=== PATIENT | female | born 1950 | race Caucasian/White ===

== ENCOUNTER 2018-08-14 10:15 | Outpatient (CLI) | payer BC, SELFPAY ==
[2018-08-14 12:45] LABS: ALT 22 U/L (12-78); AST 13 U/L (15-37); Albumin 3.9 g/dL (3.4-5.0); Alkaline Phosphatase 82 U/L (46-116); Anion Gap 9.5 mmol/L (3-11); BUN 12 mg/dL (7-18); Bilirubin, Total 0.4 mg/dL (0.2-1.0); CO2 30.5 mmol/L (21.0-32.0); CREATININE 0.66 mg/dL (0.55-1.02); Calcium 9.8 mg/dL (8.5-10.1); Chloride 102 mmol/L (98-107); Cholesterol 171 mg/dL (50-200); Glucose 84 mg/dL (70-100); HDL Cholesterol 49 mg/dL (40-60); LDL CHOLESTEROL 107 mg/dL (<100); Potassium 3.7 mmol/L (3.5-5.1); Sodium 142 mmol/L (136-145); Total Protein 7.1 g/dL (6.4-8.2); Triglyceride 113 mg/dL (30-150)
== END 2018-08-14 10:35 ==
DX: F17.200 Nicotine dependence, unspecified, uncomplicated (principal); E78.5 Hyperlipidemia, unspecified; I10 Essential (primary) hypertension; R63.8 Other symptoms and signs concerning food and fluid intake
CPT/HCPCS: 36415; 80053; 80061; 83721

== ENCOUNTER 2018-08-20 01:42 | Outpatient (CLI) | payer BC, SELFPAY ==
--- NOTE | 2018-08-20 15:56 | DI.MAMMO_ITS ---
SYMPTOMS/DIAGNOSIS: SCREENING, Z12.31 MAMMOGRAM: Mammograms were interpreted according to the usual protocol including computer analysis with CAD system, tomosynthesis and C view imaging. Comparison is made with exams from 2013 through 2018. The breasts are composed of fatty density tissue, breast density Category A. No suspicious masses or suspicious microcalcifications are seen. There has been no significant change. IMPRESSION: Category I, negative mammogram. Yearly screening mammography is recommended. [facility] [place] ASSESSMENT OF FINDINGS: Negative. Category 1. Patient will receive a letter notifying them of these results. BI-RAD category A. The breasts are almost entirely fatty.
== END 2018-08-20 02:02 ==
DX: Z12.31 Encounter for screening mammogram for malignant neoplasm of breast (principal)
CPT/HCPCS: 77063; 77067

== ENCOUNTER 2019-10-20 01:06 | Outpatient (CLI) | payer BC, SELFPAY ==
--- NOTE | 2019-10-20 15:47 | DI.MAMMO_ITS ---
EXAM: MAMMO SCREENING CLINICAL HISTORY: screening,Z12.39 TECHNIQUE: Mammograms were interpreted according to the usual protocol including computer analysis w ith CAD system, tomosynthesis and C-view imaging. COMPARISON: 2009 through 2018 FINDINGS: The breasts are composed of scattered fibroglandular densities, Breast Density category B. No suspicious masses or suspicious microcalcifications are seen. No skin thickening or abnormal axillary lymph nodes are seen. There has been no significant change from prior exams. IMPRESSION: BI-RADS category 1, yearly screening mammography is recommended. Breast density category B, scattered fibroglandular densities.
== END 2019-10-20 01:26 ==
DX: Z12.31 Encounter for screening mammogram for malignant neoplasm of breast (principal)
CPT/HCPCS: 77063; 77067

== ENCOUNTER 2020-08-12 01:54 | Outpatient (CLI) | payer BC, SELFPAY ==
[2020-08-12 12:36] LABS: ALT 19 U/L (14-59); AST 12 U/L (15-37); Albumin 3.9 g/dL (3.4-5.0); Alkaline Phosphatase 81 U/L (46-116); Anion Gap 8.5 mmol/L (3-11); BUN 13 mg/dL (7-18); Bilirubin, Total 0.3 mg/dL (0.2-1.0); CO2 29.5 mmol/L (21.0-32.0); CREATININE 0.9 mg/dL (0.55-1.02); Calcium 9.5 mg/dL (8.5-10.1); Calculated LDL 120 mg/dL (<100); Chloride 102 mmol/L (98-107); Cholesterol 182 mg/dL (<200); Glucose 109 mg/dL (74-106); HDL Cholesterol 51 mg/dL (40-60); Potassium 3.8 mmol/L (3.5-5.1); Sodium 140 mmol/L (136-145); Total Protein 7.3 g/dL (6.4-8.2); Triglyceride 59 mg/dL (<150)
== END 2020-08-12 01:55 | disposition home or self-care (01) ==
LOC: LOS 01:54
DX: Z00.00 Encounter for general adult medical examination without abnormal findings (principal); I10 Essential (primary) hypertension; E78.5 Hyperlipidemia, unspecified
CPT/HCPCS: 36415; 80053; 80061

== ENCOUNTER 2020-10-20 01:13 | Outpatient (CLI) | payer BC, SELFPAY ==
--- NOTE | 2020-10-20 09:15 | DI.MAMMO_ITS ---
Exam(s) MAMMO SCREENING EXAM: MAMMO SCREENING CLINICAL HISTORY: screening,Z12.39. TECHNIQUE: Bilateral full field digital CC and MLO mammographic images were obtained with 3D tomosyn thesis and utilizing computer aided detection (CAD). COMPARISON: Prior mammograms dating back to 2010, the most recent being September 2019. FINDINGS: There has been no significant change in the appearance and distribution of the fibroglandular tissue. Asymmetric density in the medial aspect of the right breast located 9 cm in from the nipple is unchan ged from prior studies. There are no new spiculated masses nor malignant appearing microcalcification groups. There is no significant architectural distortion nor skin thickening-retraction. IMPRESSION: No radiographic evidence of malignancy. BI-RADS Category 1 - Negative Breast Density - Category B - Scattered areas of fibroglandular density Breast density Category C or D implies that the patient has dense breast tissue. Dense breast tissue can make it harder to find cancer on a mammogram. Dense breast tissue is also associated with an incr eased risk of breast cancer. This information about the result of the mammogram report was provided to the patient to raise their awareness. Use this report when you speak with the patient about their risks for breast cancer, which includes their family history. At that time, you may recommend additional screening tests (Ultrasoun d or MRI) as these tests may add significant information. A negative radiographic report should not delay biopsy if a dominant or clinically suspicious mass is present. Up to ten percent of cancers are not identified on mammography. A negative report may reinforce clinical impression. Adenosis and dense breasts may obscure an underlying neoplasm. False positive reports average 6 to 10%. Patient will receive a letter notifying them of these results.
== END 2020-10-20 01:33 ==
DX: Z12.31 Encounter for screening mammogram for malignant neoplasm of breast (principal)
CPT/HCPCS: 77063; 77067

== ENCOUNTER 2021-02-08 02:20 | Outpatient (CLI) | payer BC, SELFPAY ==
[2021-02-08 12:14] LABS: Source Nasal/Nares
[2021-02-08 14:28] LABS: COVID-19 PCR Negative (Negative)
== END 2021-02-08 02:21 | disposition home or self-care (01) ==
LOC: LBO 02:20
PROVIDERS: Visit Provider Surgery
DX: Z20.822 Contact with and (suspected) exposure to COVID-19 (principal)
CPT/HCPCS: 87635

== ENCOUNTER 2021-02-10 12:51 | Day surgery (SDC) | payer BC, SELFPAY ==
--- NOTE | 2021-02-09 14:47 | COLE_ITS ---
Colonoscopy Report Date of procedure: 02/10/21 Pre-op diagnosis general: CRC screen/constipation Post-op diagnosis procedure note: other (sm. polyp) Surgeon: Nalini Segura Anesthesia Type: General:No Airway Estimated blood loss (mL): 0 Pathology: other Complications: None Disposition: same day Prep: Miralax/Dulcolax Retraction Time: 9 mins Procedure Description: After informed consent was obtained the patient was taken to the procedure room and placed in a left decubitous position. Monitors were applied and a time out was done. The patients name, date of , procedure, allergies to medications and metal in their body was reviewed. The patient was then sedated. Once sedated and comfortable a rectal exam was done. External exam was normal- hemorrdoidal tags Internal exam revealed a normal sphincter tone and no palpable masses. The scope was then introduced and retrofelexed. no internal hemorrhoid/hemorrhoidal tags. The scope was then advanced to the cecum w/out difficulty. The TI and appendiceal orifice were identified. The prep was poor- due to the delay in endo today. The colon jose were lavaged w/ 1.5L of saline. The scope was then slowly retracted over 9 minutes back into the rectum. There was a small polyp at 20cm. This is probably hyperplastic- it was a flat, 5mm polyp. It is removed with a cold biting forcep. All specimens are retrieved and no bleeding is noted. There is no diverticular disease. The scope was removed and the patient was woken up and taken back to Same day surgery in stable condition. The patient tolerated the procedure well and there were no immediate complications. Follow up: The patient should follow up in 5-7 years, path pd, unless they develop changes in bowel habits or other new gastrointestinal complaints. If the path report shows a hyperplastic polyp, then I would not recommend any f urther colonoscopies.
--- NOTE | 2021-02-09 14:48 | PDOC.DSDIS_ITS ---
Discharge Plan Disposition Patient Disposition: HOME Condition: Good Discharge Details Reason For Visit: colon scope Attending Provider: Nalini Segura Primary Care Provider: Kailyn Talbert Home Meds and New Rx's Prescriptions: No Action pravastatin 20 mg tablet 20 mg PO DAILY Qty: 90 RF: 4 triamcinolone acetonide 0.025 % cream 1 applic Topical BID Qty: 80 RF: 0 lisinopril-hydrochlorothiazide 20-25 mg tablet 1 tab PO DAILY Qty: 90 RF: 4 Shingrix (PF) 50 mcg/0.5 mL suspension for reconstitution 0.5 ml IM ONCE Qty: 1 RF: 0 multivitamin 1 EACH tablet 1 ea PO DAILY RF: 0 aspirin [Aspir-81] 81 MG tablet,delayed release (DR/EC) 81 mg PO DAILY RF: 0 GLUCOSAMINE \T\ CHONDROITIN CAP 1 EACH capsule 2 ea PO DAILY RF: 0 Discharge Instructions Additional Instructions: DSU Colonoscopy Post- Op Instructions Instructions for Everyone who is given Anesthesia: For your safety, please do the following for the next twenty-four (24) hours: *Do Not operate a motor vehicle (car, truck, motorcycle, etc.) *Do Not drink alcoholic beverages or use any recreational drugs for the first 24 hours or while taking pain medications. The medications in your body may have a reaction that can be dangerous. *Do Not make any important decisions or sign any important papers. Findings: Very small polyp otherwise normal Follow up: My office will send a letter in 2 to 3 weeks time detailing as to what type of polyp it was. Depending on findings will determine when we want to repeat your colonoscopy, if at all. 1. No lifting over 20 pounds or strenuous activity for the first 24 hours after your procedure. After 24 hours there are no restrictions on your activity but you may feel fatigued for a few days. 2. After you arrive home you may have a light meal and return to your normal diet as you can tolerate it without feeling sick to your stomach. 3. You may have a bloated, gaseous feeling in your belly (abdomen) after a colonoscopy. Passing gas and belching will help. Walking or lying down on your left side with your knees flexed may relieve the discomfort. Call the office at [phone] (Office) or [phone] (Hospital) right away if you notice any of the following: a.Vomiting of blood or ?coffee ground stools?. b.Rectal bleeding 1Tbsp, blood clots or continuous bleeding. c.Severe belly (abdominal) pain. d.A hard distended belly (abdomen) and an inability to pass gas. 4. Please don?t expect to have a normal BM (bowel movement) for 2-3 days after your procedure. 5. If there are questions regarding the findings of your procedure, please contact your doctor 6. If you are unable to contact your doctor with a problem, contact the hospital at [phone]. 7. Continue all your regular medications unless directed otherwise. I understand the above instructions and have no questions. Signature of Patient or Adult Escort Name of Responsible Adult Escort Signature of Nurse Date/Time Activity:: see above Diet:: see above Discharge Orders Discharge Orders: Discharge Order (Routine); Ordered 02/09/21 Ordered By: Nalini Segura DS: Diagnosis Discharge Diagnosis (1) Colon polyp: Status: Acute
--- NOTE | 2021-02-10 10:01 | ANES.PREOP_ITS ---
General Info Date of Service Date Performed: 02/10/21 Height: 5 ft 2.5 in Weight: 82.871 kg Body Mass Index (BMI): 32.8 Surgical Procedure: Operation Date: 02/10/21 12:05 Proposed Procedures Side Surgeon kera Segura DO Meds Allergies and Home Medications Allergies Allergy/AdvReac Type Severity Reaction Status Date / Time hexachlorophene Allergy Intermediate RASH Verified 02/08/21 14:01 [Hexachlorophene] Home Medication Medication Instructions Recorded Glucosamine \T\ Chondroitin Cap 2 ea PO DAILY 03/25/13 aspirin [Aspir 81] 81 mg PO DAILY tab-cap 03/25/13 multivitamin 1 ea PO DAILY 03/25/13 lisinopril 20 1 tab PO DAILY #90 tab-cap 08/22/20 mg-hydrochlorothiazide 25 mg tablet pravastatin 20 mg tablet 20 mg PO DAILY #90 tab-cap 08/22/20 triamcinolone acetonide 0.025 % 1 applic TOPICAL BID #80 g 08/22/20 topical cream varicella-zoster glycoE [id number] 0.5 ml IM ONCE #1 ea 08/22/20 adj(PF) 50 mcg/0.5 mL IM susp, kit Current Visit Medications: Current Medications Generic Name Dose Route Start Last Admin Trade Name Freq PRN Reason Stop Dose Admin Hyoscyamine Sulfate 0.125 mg 02/09/21 14:49 Hyoscyamine 0.125 Mg Sl/Oral/Chew SL DIRECTED PRN Ringer's Solution 1,000 mls @ 80 mls/hr 02/10/21 06:00 IV 03/11/21 23:59 INFUSION [facility] IV Miscellaneous Supplies 1 each 02/10/21 06:00 Iv Access IV 03/11/21 23:59 DIRECTED EILEEN Ondansetron HCl 4 mg 02/09/21 14:49 Ondansetron 4 Mg/2 Ml Vial IVP Q4H PRN PRN Nausea / Vomiting Sodium Chloride 0 ml 02/10/21 06:00 Normal Saline Flush 10 Ml Syr IV 03/11/21 23:59 PRN PRN Sodium Chloride 0 ml 02/10/21 06:00 Normal Saline 10 Ml Vial IJ 03/11/21 23:59 DIRECTED PRN Sterile Water 0 ml 02/10/21 06:00 Water,Injection,Sterile 10 Ml Vial IJ 03/11/21 23:59 DIRECTED PRN PFSH Active Problems Active Problems: Problem Status Onset Code Elevated glucose level R73.09 Colon cancer screening Z12.11 Constipation K59.00 Essential hypertension 03/24/13 I10 Hyperlipidemia 04/09/12 E78.5 Increased BMI R63.8 Tobacco use disorder F17.200 Medical History Medical History (Updated 02/10/21 @ 14:26 by Nalini Segura DO) Colon cancer screening Constipation Essential hypertension (03/24/13) Hyperlipidemia (04/09/12) 10 year risk 17.7% Increased BMI Tobacco use disorder Surgical History Surgical History (Updated 02/10/21 @ 13:01 by Cameron Thornton) Dilation and curettage DUB S/P appendectomy S/P cholecystectomy Tobacco Smoking/Tobacco Use Status: Current-Occasional Tobacco Type: cigarettes Smoking cigarettes per day: 3 Quit Status: has quit before Second hand exposure: No Alcohol Alcohol Intake: never Substance Use Substance use: Never Substance use type: does not use Vital Signs and Lab Results Vital Signs Most Recent Vital Signs in EMR: Temp Pulse Resp BP Pulse Ox 36.6 C 89 16 144/78 H 99 02/10/21 13:07 02/10/21 13:07 02/10/21 13:07 02/10/21 13:07 02/10/21 13:07 Lab Results Blood Type / Crossmatch: No Data to Display Complete Blood Count: No Data to Display Complete Metabolic Panel: No Data to Display Liver Function Panel: No Data to Display Coagulation Panel: No Data to Display Cardiac Panel: No Data to Display Arterial Blood Gas: No Data to Display Venous Blood Gas: No Data to Display Pancreas Panel: No Data to Display Thyroid Panel: No Data to Display Infectious Disease: Coronavirus (COVID-19)(PCR) Negative (Negative) 02/08/21 08:38 02/08/21 Coronavirus 2019 Source Nasal/Nares 02/08/21 08:38 02/08/21 Blood Cultures: No Data to Display Toxicology Panel: No Data to Display Anesthesia Assessment and Plan Anesthesia History Personal History: No History of Anesthesia Complications Family History: No Family History of Anesthesia Complications Exercise Tolerance Exercise Tolerance: Metabolic Equivalents>4 Cardiac & Pulmonary Exam Cardiac Exam: Normal S1/S2 Heart Sounds Pulmonary Exam: Clear Bilateral Breath Sounds Airway Exam Known Difficult Airway: No Mallampati Class: 2 Mouth Opening: Normal (> 3cm) Thyromental Distance: Greater than 3 cm Neck Range of Motion: Full ROM Neck Circumference: Normal Teeth Condition: Normal Dentition ASA Classification ASA Score: ASA 2 Emergency Case?: No NPO Status NPO Status: NPO Clears >2 hours, Solids >8 hours Anesthesia Plan Resuscitation Status: Full Code Anesthesia Technique: General Anesthesia Airway Planned: Natural Airway Monitors Used: Standard Monitors Preoperative Comments:: 70 yo female for screening colonoscopy. PMHx: HTN, smoker.
[2021-02-10 13:07] VITALS: BP 144/78; PULSE 89; RESP 16; TEMP 36.6; O2SAT 99
[2021-02-10 13:26] VITALS: BMI 32.8
[2021-02-10] MEDS: Lactated Ringers 1,000 ML 80 ML IV (13:31)
--- NOTE | 2021-02-10 14:18 | BOWEL_PTH ---
PATIENT: Sarah Bloom LOC: [facility] U#:[id number] AGE/SX: 70/F ROOM: RE02/10/[address]: Nalini Segura : 1950 BED: DIS: 02/10/2021 SPEC #: [id number] RECD: 02/10/21 15:33 STATUS: NANCY REQ #: [id number] CARLA: 02/10/21 14:[address]: Nalini Segura DEPT: Surgical Specimen RECD BY: Isis Jose ENTERED: 02/10/21 15:33 SP TYPE: Bowel OTHR DR: Kailyn Talbert APRN Tissues: 1 - BIOPSY BOWEL Procedures: GROSS AND MICRO LEVEL 4 Comments: [id number]
[2021-02-10 14:28] VITALS: BP 129/95; PULSE 64; RESP 16; TEMP 36.1; O2SAT 99
[2021-02-10 14:58] VITALS: BP 141/68; PULSE 52; RESP 16; TEMP 36.2; O2SAT 100
--- NOTE | 2021-02-10 15:03 | W.ANESPOSTOP ---
Postoperative Evaluation Date, Time and Location Date Performed: 02/10/21 Time Performed: 15:03 Patient Location: Day Surgery Unit Vital Signs Most Recent Imported Vital Signs: Most Recent Vital Signs Temp Pulse Resp BP Pulse Ox 36.1 C L 64 16 129/95 H 99 02/10/21 14:28 02/10/21 14:28 02/10/21 14:28 02/10/21 14:28 02/10/21 14:28 Pain Score Most Recent Pain Score: Most Recent Pain Score Pain Level 0 02/10/21 14:28 Assessment Mental Status: Awake (Alert & Oriented to Patient Baseline) Airway and Respiratory Function: Patent airway with normal (patient baseline) respiratory exam Cardiovascular Function: Hemodynamically Stable Hydration Status: Adequately Hydrated Nausea & Vomiting: No Nausea or Vomiting Pain: Pt. Denies Any Pain Peripheral Nerve Block: Patient did not receive a nerve block
== END 2021-02-10 15:35 | disposition home or self-care (01) ==
PROVIDERS: Visit Provider Surgery
PROC: 0DJD8ZZ Inspection of Lower Intestinal Tract, Via Natural or Artificial Opening Endoscopic (ICD-10-PCS; CPT 45378; principal; 2021-02-10 12:00)
DX: Z12.11 Encounter for screening for malignant neoplasm of colon (principal); D12.5 Benign neoplasm of sigmoid colon; K59.00 Constipation, unspecified
CPT/HCPCS: 45380; 88305; J2001

== ENCOUNTER 2021-11-06 04:27 | Outpatient (CLI) | payer BC, SELFPAY ==
[2021-11-06 13:16] LABS: Hemoglobin A1C 5.7 % (<5.7)
[2021-11-06 13:27] LABS: ALT 23 U/L (14-59); AST 16 U/L (15-37); Albumin 3.7 g/dL (3.4-5.0); Alkaline Phosphatase 69 U/L (46-116); BUN 14 mg/dL (7-18); Bilirubin, Total 0.6 mg/dL (0.2-1.0); CO2 28.1 mmol/L (21.0-32.0); CREATININE 0.8 mg/dL (0.55-1.02); Calcium 9.6 mg/dL (8.5-10.1); Glucose 94 mg/dL (74-106); Total Protein 7.1 g/dL (6.4-8.2)
[2021-11-06 13:32] LABS: Anion Gap 8.9 mmol/L (3-11); Chloride 100 mmol/L (98-107); Sodium 137 mmol/L (136-145)
[2021-11-06 13:38] LABS: Potassium 2.9 mmol/L (3.5-5.1)
[2021-11-06 15:22] LABS: Calculated LDL 100 mg/dL (<100); Cholesterol 167 mg/dL (<200); HDL Cholesterol 50 mg/dL (40-60); Triglyceride 86 mg/dL (<150)
== END 2021-11-06 04:28 | disposition home or self-care (01) ==
LOC: LOS 04:27
DX: I10 Essential (primary) hypertension (principal); E78.5 Hyperlipidemia, unspecified; R73.09 Other abnormal glucose
CPT/HCPCS: 36415; 80053; 80061; 83036

== ENCOUNTER 2021-12-14 01:09 | Outpatient (CLI) | payer OTHER, SELFPAY ==
--- OUTSIDE RECORDS SUMMARY | 2021-12-14 01:12 | XMS_ITS | Clinical Summary ---
:1950 Author Organization [facility] [place] [place] [address] Care Team Providers Name Role Phone Flores Vega Primary Care Provider Allergies No known active allergies Medications Medication Sig Dispensed Refills Start Date End Date Status CIS Free Text Med - 0 08/13/2005 Active Multiple Vitamin CIS Free Text Med - 0 08/13/2005 Active Baby ASA (aspirin) GLUCOSAMINE HCL/CHONDRO 0 08/13/2005 Active TAFOYA A (GLUCOSAMINE-CHONDROITI N ORAL) lisinopril-hydrochlorot 1 Tablet(s), PO, 0 6 Active hiazide (PRINZIDE) Once daily 20-12.5 mg per tablet Immunizations Name Administration Dates Next Due Hepatitis A Vaccine, unspecified formulation 06/14/2005 Influenza Vaccine, Whole 06/14/2005 Td, adult 06/14/2005 Social History Tobacco Use Types Packs/Day Years Used Date Never Assessed Sex Assigned at Date Recorded Not on file Plan of Treatment Health Maintenance Due Date Last Done Comments Covid-19 Vaccine (#1) 1956 Hepatitis C Screening 1969 Tdap adult 1970 Breast Cancer Share Decision Needed 1991 Colonoscopy 1996 Breast Cancer screening 2001 Zoster vaccine (1 of 2) 2001 Advance Directive 2006 Tetanus vaccine 06/14/2015 06/14/2005 Bone Density Scan 2016 Pneumoccocal Vaccine: 65+ (1 - PCV) 2016 Influenza (Flu) vaccine (1 of 1 - Influenza standard 01/25/2022 06/14/2005 series) Care Teams Assistant Broker Relationship Specialty Start Date End Date Flores Vega PA PCP - General 06/06/12
--- OUTSIDE RECORDS SUMMARY | 2021-12-14 01:12 | XMS_ITS | Encounter Summary ---
:1950 Author Organization [facility] Address [facility] [place] [address] Care Team Providers Name Role Phone Jay Agustin MD, Hiram Primary Care Provider Encounter Details Date Type Department Care Team Description 05/28/2012 Orders Only Radiology Ani Shields MD Abnormal findings on [facility] clarita gnostic imaging of Drive DR breast (Primary Dx) [place] [address] NUCLEAR MEDICINE [phone] [place] [address] Social History Tobacco Use Types Packs/Day Years Used Date Never Assessed Sex Assigned at Date Recorded Not on file documented as of this encounter Plan of Treatment Not on filedocumented as of this encounter Visit Diagnoses Diagnosis Abnormal findings on diagnostic imaging of breast - Primary Other (abnormal) findings on radiologica l examination of breast documented in this encounter Care Teams Lining Closer Relationship Specialty Start Date End Date Hiram Thompson MD PCP - General 04/18/10 06/05/[address] [place] [address] documented as of this encounter
--- OUTSIDE RECORDS SUMMARY | 2021-12-14 01:12 | XMS_ITS | Encounter Summary ---
:1950 Author Organization [facility] [place] [address] Care Team Providers Name Role Phone Flores Vega Primary Care Provider Encounter Details Date Type Department Care Team Description 06/11/2012 Hospital Encounter Mammography at [facility] [place] ANGI, DR YAN Abnormal findings on [facility] Mark Anthony Sullivan MD [address] [place] [address] [place] [address] Social History Tobacco Use Types Packs/Day Years Used Date Never Assessed Sex Assigned at Date Recorded Not on file documented as of this encounter Medications at Time of Discharge Medication Sig Dispensed Refills Start Date End Date CIS Free Text Med - 0 08/13/2005 Multiple Vitamin CIS Free Text Med - Baby 0 08/13/2005 ASA (aspirin) GLUCOSAMINE HCL/CHONDRO TAFOYA 0 6 A (GLUCOSAMINE-CHONDROITIN ORAL) lisinopril-hydrochlorothiaz 1 Tablet(s), PO, 0 pasquale (PRINZIDE) 20-12.5 mg Once daily per tablet documented as of this encounter Progress Notes Gene Shields MD - 06/10/2012 2:38 PM EST Patient Name: Sarah Bloom Patient Age: 62 y.o. Birthdate: 1950 Admit date: (Not on file) Attending Physician: Dr Farrah Malik MD Procedure date: scheduled for tomorrow Procedure type: left Breast biopsy, stereo or ultrasound Special Instructions: none Allergies: Review of patient's allergies indicates no known allergies. Medications: Current outpatient prescriptions:CIS Free Text Med - Multiple Vitamin, , Disp: , Rfl: ;CIS Free Text Med - Baby ASA (aspirin), , Disp: , Rfl: ; GLUCOSAMINE HCL/CHONDRO TAFOYA A (GLUCOSAMINE-CHONDROITIN ORAL), , Disp: , Rfl: ; lisinopril-hydrochlorothiazide (PRINZIDE) 20-12.5 mg per tablet, 1Tablet(s), PO, Once daily, Disp: , Rfl: Anticoagulation status: ASA stopped 05/30 Imaging reviewed and procedural plan approved by Dr. GENE SHIELDS MD documented in this encounter Plan of Treatment Not on filedocumented as of this encounter Procedures Procedure Name Priority Date/Time Associated Diagnosis Comme nts MAMMO BREAST US Routine 06/11/2012 10:58 Other (abnormal) Resu lts for this LIMITED AM EST findings on procedure are i n radiological the results examination of breast sectio n. documented in this encounter Results Mammo breast US unilateral bilateral (06/11/2012 10:58 AM EST) Anatomical Region Laterality Modality Breast N/A Mammography Specimen (Source) Anatomical Collection Method Collection Time Re ceived Time Location / / Volume Laterality 06/11/2012 10:58 AM EST Impressions 06/12/2012 3:28 PM EST IMPRESSION: ?? The Left breast is BENIGN for an 8mm sim ple cyst with mural calcifications (BIRADS Category 2). Repeat bilateral ma mmography in one year recommended. Narrative 06/12/2012 3:28 PM EST LIMITED ULTRASOUND OF THE LEFT BREAST ON 06/11/12: ?? CLINICAL INDICATION: Please see dictatio n of outside study. ? FINDINGS: We repeated the ultrasound of the inferior aspect of the Left breast and identified the mass seen on her rece nt mammogram that was referred for biopsy. She has an 8mm lobulated cyst co ntaining a mural calcification highly concordant with the abnormality seen on mammography. This is BIRADS Category 2 and requires no further intervention. Th e patient was reassured about the benign nature of this abnormality. ?? Procedure Note Gene Shields MD - 06/12/2012Formattin g of this note might be different from the original. LIMITED ULTRASOUND OF THE LEFT BREAST ON 06/11/12: CLINICAL INDICATION: Please see dictatio n of outside study. FINDINGS: We repeated the ultrasound of the inferior aspect of the Left breast and identified the mass seen on her rece nt mammogram that was referred for biopsy. She has an 8mm lobulated cyst co ntaining a mural calcification highly concordant with the abnormality seen on mammography. This is BIRADS Category 2 and requires no further intervention. Th e patient was reassured about the benign nature of this abnormality. IMPRESSION IMPRESSION: The Left breast is BENIGN for an 8mm sim ple cyst with mural calcifications (BIRADS Category 2). Repeat bilateral ma mmography in one year recommended. Gene Shields MD IMG MAMMO ORDERABLES documented in this encounter Visit Diagnoses Diagnosis Abnormal findings on diagnostic imaging of breast Other (abnormal) findings on radiologica l examination of breast documented in this encounter Care Teams Industrial Maintenance Electrician Relationship Specialty Start Date End Date Flores Vega PA PCP - General 06/06/12 documented as of this encounter
--- OUTSIDE RECORDS SUMMARY | 2021-12-14 01:13 | XMS_ITS | Encounter Summary ---
:1950 Author Organization [facility] [place] [address] Care Team Providers Name Role Phone Jay Agustin MD, Hiram Primary Care Provider Encounter Details Date Type Department Care Team Description 05/23/2012 External Results XRay at [facility] Flores Vega PA [address] [place] [address] [address] [place] [address] [place] [address] [phone] (Wo rk) Social History Tobacco Use Types Packs/Day Years Used Date Never Assessed Sex Assigned at Date Recorded Not on file documented as of this encounter Plan of Treatment Not on filedocumented as of this encounter Procedures Procedure Name Priority Date/Time Associated Diagnosis Comme nts MAMMOGRAM SCAN Routine 05/16/2012 MAMMOGRAM SCAN Routine 05/12/2012 MAMMOGRAM SCAN Routine 04/20/2011 MAMMOGRAM SCAN Routine 04/19/2010 documented in this encounter Results Scan Doc: Mammogram (05/16/2012) Anatomical Region Laterality Modality Other Narrative This result has an attachment that is no t available. Flores URIAS MEDIA MGR SCAN EXT ORDR/RSLT Scan Doc: Mammogram (05/12/2012) Anatomical Region Laterality Modality Other Narrative This result has an attachment that is no t available. Flores URIAS MEDIA MGR SCAN EXT ORDR/RSLT Scan Doc: Mammogram (04/20/2011) Anatomical Region Laterality Modality Other Narrative This result has an attachment that is no t available. Flores URIAS MEDIA MGR SCAN EXT ORDR/RSLT Scan Doc: Mammogram (04/19/2010) Anatomical Region Laterality Modality Other Narrative This result has an attachment that is no t available. Flores URIAS MEDIA MGR SCAN EXT ORDR/RSLT documented in this encounter Visit Diagnoses Not on filedocumented in this encounter Care Teams [employer] Operations Specialist Relationship Specialty Start Date End Date Hiram Thompson MD PCP - General 04/18/10 06/05/12 [address] [place] [address] documented as of this encounter
--- OUTSIDE RECORDS SUMMARY | 2021-12-14 01:13 | XMS_ITS | Encounter Summary ---
:1950 Author Organization [facility] Address [address] [place] [address] Care Team Providers Name Role Phone Unavailable Primary Care Provider Unavailable Encounter Details Date Type Department Care Team Description 01/14/2007 Results Only [facility] - Kim Anthony PA conversion [address] [place] [address] Social History Tobacco Use Types Packs/Day Years Used Date Never Assessed Sex Assigned at Date Recorded Not on file documented as of this encounter Plan of Treatment Not on filedocumented as of this encounter Procedures Procedure Name Priority Date/Time Associated Diagnosis Comme nts CYTOPATHOLOGY Routine 01/14/2007 0:00 EDT Results for this procedure are i n the results section . documented in this encounter Results CYTOPATHOLOGY (01/14/2007 0:00 EDT) Pathology Report: CYTOPATHOLOGY REPORT [facility] Reports generated via electronic interface contain nilam ginal data; however they are lacking the format of the original re port. Caution should be taken when reading/interpreting unfo rmatted reports. Name: ? SARAH WATTS ? Accession #: ? [id number] : ? 1950 (Age: 56) ??F ?Collect Date: ? 12/26 Location: ? [facility] ? Receive Date : ? 01/15/2007 Provider: ?KIM URIAS Copy to: ? Specimen/Source: ?ThinPrep Pap Test, E ndocervix, processed on [employer] ThinPrep Imaging System, with manual evaluation Last Menstrual Period: ? Other: ? HPVA - HPV testing requested if ASC-US on the current ThinPrep Pap test. ? SPECIMEN ADEQUACY ? Satisfactory for Evaluation - transformation zone component present GENERAL CATEGORIZATION ? Negative for Intraepithelial Lesion or Malignan cy ? Document reviewed and electronically signed by: ? BARRON Banerjee(ASCP) ? Report Date: ??01/21/2007 09:29 End of Report Specimen Performing Organization Address City/State/ZIP Code Phon e Number [facility] [address] [place] [address] SERVICES [facility] [address] [place] [address] documented in this encounter Visit Diagnoses Not on filedocumented in this encounter
--- OUTSIDE RECORDS SUMMARY | 2021-12-14 01:13 | XMS_ITS | Encounter Summary ---
:1950 Author Organization [facility] [place] [address] Care Team Providers Name Role Phone Jay Agustin MD, Hiram Primary Care Provider Encounter Details Date Type Department Care Team Description 05/26/2012 Hospital Encounter [place]Ray at [facility] [place] YAN [address] [place] [address] [place] [address] Social History Tobacco Use Types Packs/Day Years [...] per tablet documented as of this encounter Plan of Treatment Not on filedocumented as of this encounter Procedures Procedure Name Priority Date/Time Associated Diagnosis Comme nts REQUEST FOR 2ND Routine 05/26/2012 10:15 AM Resul ts for this READ MAMMO EST procedure are i n the results section. documented in this encounter Results Request for 2nd read Mammo (05/26/2012 10:15 AM EST) Anatomical Region Laterality Modality Other Specimen (Source) Anatomical Collection Method Collection Time Re ceived Time Location / / Volume Laterality 05/26/2012 10:15 AM EST Narrative 05/29/2012 4:56 PM EST INTERPRETATION OF OUTSIDE MAMMOGRAMS (PERFORMED ON 05/12/12 AND 05/16/12) FROM [facility] DATED 05/26/12: ?? DIAGNOSTIC IMAGING SUMMARY: ?? LEFT BREAST LESION 1: SUSPICIOUS (BIRADS Category 4). ?? Finding: Lobulated mass with a calcifica tion. ?? Size: 8mm. ?? Location: 0600, 5cm from the nipple. ?? Recommendation: Biopsy by either ultraso und or stereotactic means. ?? RIGHT BREAST: NEGATIVE (BIRADS Category 1). ?? NARRATIVE: ?? CLINICAL INDICATION: I have been asked t o consult on this patient by Dr. Mark Anthony Sullivan because he believes a review of this study may change or alter the care of this patient. ?? TECHNIQUE: Studies are from [facility] and [facility] bilateral screening mammograms from 05/12/12 with comparisons from 2006 through 2010 and additional diagnostic views of the Left breast from 05/16/12 a s well as a limited ultrasound of the Left breast from the same date. ?? FINDINGS: The breasts are of scattered f ibroglandular density. ?? RIGHT BREAST: The Right breast is normal and unchanged from priors. ?? LEFT BREAST: There is a subtle 8mm lobul ated, low density opacity at 0600 in the Left breast approximately 5cm from t he nipple. It is seen best on the cone compression Left CC and Left true latera l projections with an associated single coarse calcification. This represents a subtle change compared to earlier mammograms. This is of low probability f or malignancy but in view of the subtle change a biopsy is reasonable. [facility]trasound performed [facility] did not show an abnormality at this site. I would recommend that we rep eat the ultrasound immediately prior to the biopsy to ascertain a route for biop sy. If it is not visible by ultrasound we will proceed with a stereotactic biop sy. Procedure Note Ani Shields MD - 05/29/2012Formattin g of this note might be different from the original. INTERPRETATION OF OUTSIDE MAMMOGRAMS (PE RFORMED ON 05/12/12 AND 05/16/12) FROM [facility] DATED 05/26/12: DIAGNOSTIC IMAGING SUMMARY: LEFT BREAST LESION 1: SUSPICIOUS (BIRADS Category 4). Finding: Lobulated mass with a calcifica tion. Size: 8mm. Location: 0600, 5cm from the nipple. Recommendation: Biopsy by either ultraso und or stereotactic means. RIGHT BREAST: NEGATIVE (BIRADS Category 1). NARRATIVE: CLINICAL INDICATION: I have been asked t o consult on this patient by Dr. Mark Anthony Sullivan because he believes a review of this study may change or alter the care of this patient. TECHNIQUE: Studies are from [facility] and [facility] bilateral screening mammograms from 05/12/12 with comparisons from 2006 through 2010 and additional diagnostic views of the Left breast from 05/16/12 a s well as a limited ultrasound of the Left breast from the same date. FINDINGS: The breasts are of scattered f ibroglandular density. RIGHT BREAST: The Right breast is normal and unchanged from priors. LEFT BREAST: There is a subtle 8mm lobul ated, low density opacity at 0600 in the Left breast approximately 5cm from t he nipple. It is seen best on the cone compression Left CC and Left true latera l projections with an associated single coarse calcification. This represents a subtle change compared to earlier mammograms. This is of low probability f or malignancy but in view of the subtle change a biopsy is reasonable. [facility]ound [facility] did not show an abnormality at this site. I would recommend that we rep eat the ultrasound immediately prior to the biopsy to ascertain a route for biop sy. If it is not visible by ultrasound we will proceed with a stereotactic biop sy. Mark Anthony Sullivan MD IMG OUTSIDE INTERPRETATION O RDERABLES documented in this encounter Visit Diagnoses Not on filedocumented in this encounter Care Teams Taxicab Dispatcher Relationship Specialty Start Date End Date Hiram Thompson MD PCP - General 04/18/10 06/05/[address] [place] [address] documented as of this encounter
--- OUTSIDE RECORDS SUMMARY | 2021-12-14 01:13 | XMS_ITS | Encounter Summary ---
:1950 Author Organization [facility] Address [address] [place] [address] Care Team Providers Name Role Phone Unknown, Provider Primary Care Provider Encounter Details Date Type Department Care Team Description 04/01/2014 Results Only [facility] Alem Vega am, ADONAY Services - Renetta All en [address] [address] Social History Tobacco Use Types Packs/Day Years Used Date Never Assessed Sex Assigned at Date Recorded Not on file documented as of this encounter Plan of Treatment Not on filedocumented as of this encounter Procedures Procedure Name Priority Date/Time Associated Diagnosis Comme nts PAP TEST- RESULT Routine 04/01/2014 0:00 EST Resu lts for this ONLY procedure are i n the results section. documented in this encounter Results PAP TEST- RESULT ONLY (04/01/2014 0:00 EST) Pathology Report: CYTOPATHOLOGY REPORT [facility] Reports generated via electronic interface contain nilam ginal data; SERVICES however they are lacking the format of the original re port. Caution should be taken when reading/interpreting unfo rmatted reports. Name: ? SARAH WATTS ? Accession #: ? [id number] ? : ? 1950 (Age: 64) ??F ?Collect Da te: ? 04/01/2014 ? Location: ? [facility] ? Receive Date: ? 014 ? Provider: KIM URIAS Copy to: ? Final Report SPECIMEN ADEQUACY ? Satisfactory for Evaluation - transformation zone component present GENERAL CATEGORIZATION ? Negative for Intraepithelial Lesion or Malignan cy ?? Menstrual/ Status: ??Post Menopausal Specimen/Source: ??Pap Test, Cervix/Endocervix, ThinPr ep Imaging System with manual evaluation Document reviewed and electronically signed by: ? Rain Colbert, CT(ASCP) ? Report ??Date: 04/07/2014 13:10 HPV with Pap Test ? Date Ordered: ? 04/07/2014 ? Status: ?? Signed Out ?Date Complete: ? 04/09/2014 ? By: ??S ystem Interface ? Date Reported: ? 04/09/2014 ? Interpretation RESULT: Negative for HPV. No E6 or E7 mRNA is detected from HPV types 16,18,31,3 3,35, 39,45,51,52,56,58,59,66, and 68 by tower truck driver media chloe amplification. Comments Document reviewed and electronically signed by: ? System Interface ? Report date: 04/09/2014 By the signature above, the attending physician certif ies that he/she has personally conducted a gross and/or microscopic examin ation of the described specimens and rendered or confirmed the above diagnosi s. End of Report Specimen Performing Organization Address City/State/ZIP Code Phon e Number [facility] [address] [place] [address] SERVICES documented in this encounter Visit Diagnoses Not on filedocumented in this encounter Care Teams Geographic Information System Surveyor Relationship Specialty Start Date End Date Unknown, Provider, PCP - General 07/25/10 documented as of this encounter
--- OUTSIDE RECORDS SUMMARY | 2021-12-14 01:13 | XMS_ITS | Encounter Summary ---
:1950 Author Organization [facility] Address [address] [place] [address] Care Team Providers Name Role Phone Unavailable Primary Care Provider Unavailable Encounter Details Date Type Department Care Team Description 07/21/2010 Results Only [facility] Steve Sullivan , Laboratory Services - [address] [place] [address] [place] [address] [place] [address] [phone] Social History Tobacco Use Types Packs/Day Years Used Date Never Assessed Sex Assigned at Date Recorded Not on file documented as of this encounter Plan of Treatment Not on filedocumented as of this encounter Procedures Procedure Name Priority Date/Time Associated Diagnosis Comme [facility] SURGICAL PATHOLOGY Routine 07/21/2010 0:00 EST Re sults for this procedure are i n the results section. documented in this encounter Results SURGICAL PATHOLOGY (07/21/2010 0:00 EST) Pathology Report: SURGICAL PATHOLOGY REPORT ? [facility] generated via [employer] interface contain original data; ? LAB however they are lacking the format of the original report. ? Caution should be taken when reading/interpreting unformatted reports. ? Name: ? MAC, SARAH L ? Accession #: ? [id number] ? : ? 1950 (Age: 60) ??F ? Collec t Date: ? 07/21/2010 ? Location: ? [facility] ? R eceive Date: ? 07/22/2010 ? Provider: STEVE GONZALES SON DO ? Copy to: BRI GHOTRA MD ? Final Pathologic Diagnosis: ? Rectum, distal, polyp , biopsy: ? - Hyperplastic polyp. ??See comment. ? Comment: ? Deeper levels have be en examined. ??(Dr. Rodrigues)/mms ? Document reviewed and electr onically signed by: ? CODEY RENUKA MD ? Report ??Date: 07/25/2010 13 :15 ? By the signature above, the attending physician certifies that he/she has ? personally conducted a gross and/or microscopic examination of the described ? specimens and rendered or co nfirmed the above diagnosis. ? Specimen(s) Received: ? Distal rectal polyp ? Clinical History: ? Colonoscopy for scree jackie ? Gross Description: ? Received in Hollande' s fixative labelled Mac, Sarah and distal ? rectal polyp is a watkins-pink, 0.6 x 0.2 x 0.2 cm soft tissue fragment. ??The ? specimen is entirely submitt ed in one cassette. (Mason Pressley/[place] ? End of Report ? Specimen Performing Organization Address City/State/ZIP Code Phon e Number [facility] [address] [place] [address] SERVICES [facility] [address] [place] [address] documented in this encounter Visit Diagnoses Not on filedocumented in this encounter
--- OUTSIDE RECORDS SUMMARY | 2021-12-14 01:13 | XMS_ITS | Encounter Summary ---
:1950 Author Organization [facility] Address [address] [place] [address] Care Team Providers Name Role Phone Unknown, Provider Primary Care Provider Encounter Details Date Type Department Care Team Description 02/11/2021 Lab Requisition [facility] Nalini Segura for Pathology & M, DO screening for Laboratory Medicine - [address]ant neoplasm of [facility] [address] colon [address] [place] [phone] Social History Tobacco Use Types Packs/Day Years Used Date Never Assessed Sex Assigned at Date Recorded Not on file documented as of this encounter Plan of Treatment Not on filedocumented as of this encounter Procedures Procedure Name Priority Date/Time Associated Diagnosis Comme nts SURGICAL PATHOLOGY Today 02/10/2021 14:18 Encounter for Resu lts for this EDT screening for procedure are in malignant neoplasm the resul ts of colon section. documented in this encounter Results SURGICAL PATHOLOGY (02/10/2021 14:18 EDT) Note to Patient The following [facility] MEDICAL pathology results CENTER have been interpreted LABORATORY by your pathologist SERVICES and may be available to you before your health provider has had the opportunity to review them. Please allow time for your provider to receive these results and explore management options, if applicable. Final Diagnosis A. COLON, 20CM, BIOPSY: [facility] MEDICAL - Tubular adenoma CENTER LABORATORY SERVICES Attestation By the signature [facility] MEDICAL Electronica lly below, the attending CENTER signed by Mona, physician certifies LABORATORY Cheryl Arenas MD on that they have 1) SERVICES 02/13/2021 at 1514 personally conducted a gross and/or microscopic examination of the described specimen(s), and/or personally interpreted the results of laboratory testing of the described specimen(s), and 2) personally rendered or confirmed the above diagnosis. Clinical History Screening [facility] Gross Description A. [facility] Received in formalin nancy d with proper patient identification (initials C, B) and polyp @ 20 cm is a pale watkins-white focally brown speckled tissue (0.3 x 0.2 x 0.2 cm). Submitted intact in A1. [facility] Gwyn Zheng 02/11/2021 13:22 SERVICES Performing Lab [facility] Scanned Images [facility] SERVICES Specimen Tissue - Entire colon (body structure) Performing Organization Address City/State/ZIP Code Phon e Number [facility] [address] [place] [address] SERVICES documented in this encounter Visit Diagnoses Diagnosis Encounter for screening for malignant ne oplasm of colon Special screening for malignant neoplasm s, colon documented in this encounter Care Teams Bander And Cellophaner Machine Helper Relationship Specialty Start Date End Date Unknown, Provider, PCP - General 07/25/10 documented as of this encounter
--- OUTSIDE RECORDS SUMMARY | 2021-12-14 01:13 | XMS_ITS | Encounter Summary ---
:1950 [place] [address] Care Team Providers Name Role Phone Jay Agustin MD, Hiram Primary Care Provider Encounter Details Date Type Department Care Team Description 04/20/2011 Orders Only Radiology Georgia Barron MD [facility] [place] [address] DIAGNOSTIC RADIOLOGY [phone] [place], [place] [address] (Wo rk) Social History Tobacco Use Types Packs/Day Years Used Date Never Assessed Sex Assigned at Date Recorded Not on file documented as of this encounter Plan of Treatment Not on filedocumented as of this encounter Procedures Procedure Name Priority Date/Time Associated Diagnosis Comme nts FILM LIBRARY Routine 04/20/2011 9:55 PM Results f or this STORAGE ONLY MAMMO EST procedure are in the results section. documented in this encounter Results Film Library- Storage only Mammo (04/20/2011 9:55 PM EST) Anatomical Region Laterality Modality Other Specimen (Source) Anatomical Collection Method Collection Time Re ceived Time Location / / Volume Laterality 04/20/2011 9:55 PM EST Narrative 07/14/2013 6:32 PM EST This is a non-reportable exam. Procedure Note Yury Cameron - 07/14/2013Formatting of t his note might be different from the original. This is a non-reportable exam. Georgia Barron MD [facility] FILM LIBRARY ORDERABLES documented in this encounter Visit Diagnoses Not on filedocumented in this encounter Care Teams Machine Designer Relationship Specialty Start Date End Date Hiram Thompson MD PCP - General 04/18/10 06/05/12 [address] [place] [address] documented as of this encounter
--- OUTSIDE RECORDS SUMMARY | 2021-12-14 01:13 | XMS_ITS | Encounter Summary ---
:1950 Author Organization [facility] Address [address] [place] [address] Care Team Providers Name Role Phone Unavailable Primary Care Provider Unavailable Encounter Details Date Type Department Care Team Description 01/21/[address] [facility] - Keaton Wilson MD [facility] [address] [place] [address] [place] [address] [phone] Social History Tobacco Use Types Packs/Day Years Used Date Never Assessed Sex Assigned at Date Recorded Not on file documented as of this encounter Plan of Treatment Not on filedocumented as of this encounter Procedures Procedure Name Priority Date/Time Associated Diagnosis Comme nts SURGICAL PATHOLOGY Routine 01/21/2006 0:00 EDT Re sults for this procedure are i n the results section. documented in this encounter Results SURGICAL PATHOLOGY (01/21/2006 0:00 EDT) Pathology Report: SURGICAL PATHOLOGY REPORT [facility] Reports generated via electronic interface contain nilam ginal data; LAB however they are lacking the format of the original re port. Caution should be taken when reading/interpreting unfo rmatted reports. Name: ? SARAH WATTS ? Accession #: ? [id number] ? : ? 1950 (Age: 55) ??F ? Collect Date: ? 01/21/2006 ? Location: ? [facility] ? Receive Date: ? 01/23/20 06 ? Provider: RITESH WILSON MD Copy to: KIM URIAS ? Final Pathologic Diagnosis: ? Endometrium, biopsy: 1. ?Inactive endometrium. 2. ?Stromal breakdown. 3. ?Fragments of benign endocervical tiss ue. Document reviewed and electronically signed by: TRI GIBBS MD Report ??Date: 01/25/2006 15:43 By the signature above, the attending physician certif ies that he/she has personally conducted a gross and/or microscopic examin ation of the described specimens and rendered or confirmed the above diagnosi s. Specimen(s) Received: ? Endometrial biopsy Clinical History: ? PMB; clinical diagnosis code: ??627.1 Gross Description: ? Received in formalin labelled Elvira and endometrial bx is 2.0 cc of red-brown tissue fragments a dmixed with clotted blood. ??The specimen is entirely submitted in one cassette. ??(AAKASH Martins)/anuradha End of Report Specimen Performing Organization Address City/State/ZIP Code Phon e Number [facility] [address] [place] [address] SERVICES [facility] [address] [place] [phone] documented in this encounter Visit Diagnoses Not on filedocumented in this encounter
--- OUTSIDE RECORDS SUMMARY | 2021-12-14 01:13 | XMS_ITS | Clinical Summary ---
:1950 Author Organization [facility] Address [address] [place] [address] Care Team Providers Name Role Phone Unknown, Provider Primary Care Provider Social History Tobacco Use Types Packs/Day Years Used Date Never Assessed Sex Assigned at Date Recorded Not on file Plan of Treatment Health Maintenance Due Date Last Done Comments Hepatitis C Screen 1950 COVID-19 Vaccine (1) 1963 Fall Risk Screening 2016 Insurance Payer Benefit Plan Subscriber ID Effective Phone Address Typ e / Group Dates [place] 2020-Prese [address] [place] [address] [place] [address] MEDICARE MEDICARE A [id number] 2016-Pres [phone] [address] 50 Medicare [address] ent [address] [facility] [place] [address] (Work) Sarah Bloom Personal/Family Self 1950 [address] (Home) [place] [address] (Work) Sarah Bloom Personal/Family Self 1950 [address] (Home) [place] [address] (Work) Care Teams Lab Support Service Tech Relationship Specialty Start Date End Date Unknown, Provider, PCP - General 07/25/10
--- OUTSIDE RECORDS SUMMARY | 2021-12-14 01:13 | XMS_ITS | Encounter Summary ---
:1950 Author Organization [facility] Address [address] [place] [address] Care Team Providers Name Role Phone Unavailable Primary Care Provider Unavailable Encounter Details Date Type Department Care Team Description 01/22/2008 Before PRISM Converted [facility] - Kevin Vega PA Visit (Maple) Maple conversion [address] [place] [address] Social History Tobacco Use Types Packs/Day Years Used Date Never Assessed Sex Assigned at Date Recorded Not on file documented as of this encounter Plan of Treatment Not on filedocumented as of this encounter Procedures Procedure Name Priority Date/Time Associated Comments Diagnosis HPV DETECTION, HIGH Routine 01/22/2008 8:07 Resul ts for this RISK TYPES EDT procedure are i n the results section. CYTOPATHOLOGY Routine 01/22/2008 0:00 Results for this EDT procedure are i n the results section. documented in this encounter Results HUMAN PAPILLOMA VIRUS DNA TEST (01/22/2008 8:07 EDT) Specimen Description Cervix, ThinPrep WILL Ko AB vial Result Negative for HPV [facility] types 16, 18, 31, 33, 35, 39, 45, 51, 52, 56, 58, 59, and 68. Report Status Final [facility] [id number] Specimen Performing Organization Address City/State/ZIP Code Phon e Number [facility] [address] [place] [address] SERVICES [facility] [address] [place] [address] CYTOPATHOLOGY (01/22/2008 0:00 EDT) Pathology Report: CYTOPATHOLOGY REPORT ? [facility] Reports generated via electr [employer]ic interface contain original data; ? however they are lacking the format of the original report. ? Caution should be taken when reading/interpreting unformatted reports. ? Name: ? MAC, SARAH L ? Accession #: ? [id number] ? : ? 1950 (Age: 57) ??F ?Collect Date: ? 01/22/2008 ? Location: ? [facility] ? Receive Date: ? 01/27/2008 ? Provider: ?KIM SIM ON PA ? Copy to: ? Specimen/Source: ? ThinPrep Pap Test, Endocervix, processed on [employer] ? ThinPrep Imaging System, wit h manual evaluation ? Last Menstrual Period: ? Menstrual/ Status: ? Post Menopausal ? Other: ? Additional clinical informat ion: H/o fibroids ? HPVDX - HPV testing requeste d regardless of diagnosis on current ThinPrep Pap ?? test. ? SPECIMEN ADEQUACY ? Satisfactory for Eval uation ? - transformation zone compon ent present ? GENERAL CATEGORIZATION ? Negative for Intraepi thelial Lesion or Malignancy ? Document reviewed and electr onically signed by: ? Silke Nadege, CT( CP) ? Report Date: ??09/04/ 2008 12:21 ? End of Report ? Specimen Performing Organization Address City/State/ZIP Code Phon e Number [facility] [address] [place] [address] SERVICES [facility] [address] [place] [address] documented in this encounter Visit Diagnoses Not on filedocumented in this encounter
[2021-12-14 12:45] LABS: Potassium 4.1 mmol/L (3.5-5.1)
== END 2021-12-14 01:10 | disposition home or self-care (01) ==
LOC: LOS 01:11
DX: E87.6 Hypokalemia (principal)
CPT/HCPCS: 36415; 84132

== ENCOUNTER → 2021-12-19 02:34 | Outpatient (CLI) | payer OTHER, SELFPAY ==
--- NOTE | 2021-12-19 06:45 | DI.MAMMO_ITS ---
Exam(s) MAMMO SCREENING EXAM: MAMMO SCREENING CLINICAL HISTORY: screening, Z12.39 TECHNIQUE: Bilateral full field digital CC and MLO mammographic images were obtained with 3D tomosyn thesis and utilizing computer aided detection (CAD). COMPARISON: Available for comparison. FINDINGS: Masses/Architectural Distortion: None seen. Microcalcifications: No suspicious pleomorphic-type are seen. Skin Thickening/Nipple Retraction: None. IMPRESSION: 1. No significant interval change with no specific features of malignancy noted. 2. Unless there is more urgent need, screening mammography is recommended, as per [employer] guidelines. BI-RADS Category 1 - Negative Breast Density - Category B - Scattered areas of fibroglandular density Breast density category C or D implies that the patient has dense breast tissue. Dense breast tissue is very common and is not abnormal but dense breast tissue can make it harder to find cancer on a ma mmogram. Also, dense breast tissue may increase their breast cancer risk. This information about the result of the mammogram report was provided to the patient to raise their awareness. Use this report when you speak with the patient about their risks for breast cancer, which includes their family hist ory. At that time, you may recommend for more screening tests (Ultrasound or MRI) as they might be us eful based on their risk. A negative radiographic report should not delay biopsy if a dominant or clinically suspicious mass is present. Up to ten percent of cancers are not identified on mammography. A negative report may reinforce clinical impression. Adenosis and dense breasts may obscure an underlying neoplasm. False positive reports average 6 to 10%. Patient will receive a letter notifying them of these results.
== END ==
DX: Z12.31 Encounter for screening mammogram for malignant neoplasm of breast (principal); R92.8 Other abnormal and inconclusive findings on diagnostic imaging of breast
CPT/HCPCS: 77063; 77067

== ENCOUNTER 2022-11-09 01:47 | Outpatient (CLI) | payer OTHER, SELFPAY ==
[2022-11-09 12:43] LABS: ALT 22 U/L (14-59); AST 14 U/L (15-37); Albumin 3.7 g/dL (3.4-5.0); Alkaline Phosphatase 70 U/L (46-116); Anion Gap 7.7 mmol/L (3-11); BUN 18 mg/dL (7-18); Bilirubin, Total 0.5 mg/dL (0.2-1.0); CO2 29.3 mmol/L (21.0-32.0); CREATININE 0.9 mg/dL (0.55-1.02); Calcium 9.5 mg/dL (8.5-10.1); Chloride 100 mmol/L (98-107); Estimated GFR 68.35 (mL/min/1.73m2); Glucose 111 mg/dL (74-106); Potassium 3.4 mmol/L (3.5-5.1); Sodium 137 mmol/L (136-145); Total Protein 7.5 g/dL (6.4-8.2)
== END 2022-11-09 01:48 | disposition home or self-care (01) ==
LOC: LOS 01:47
PROVIDERS: PCP Nurse Practitioner Family
DX: E03.9 Hypothyroidism, unspecified (principal)
CPT/HCPCS: 36415; 80053

== ENCOUNTER 2022-12-20 02:34 | Outpatient (CLI) | payer OTHER, SELFPAY ==
--- NOTE | 2022-12-20 12:44 | DI.MAMMO_ITS ---
Exam(s) MAMMO SCREENING EXAM: MAMMO SCREENING CLINICAL HISTORY: screening.Z12.39. TECHNIQUE: Bilateral full field digital CC and MLO mammographic images were obtained with 3D tomosyn thesis and utilizing computer aided detection (CAD). COMPARISON: Prior mammograms were reviewed. FINDINGS: There has been no significant change in the appearance and distribution of the fibroglandular tissue. There are no CAD designations. There are no new spiculated masses nor malignant appearing microcalcification groups. There is no significant architectural distortion nor skin thickening-retraction. IMPRESSION: No radiographic evidence of malignancy. BI-RADS Category 1 - Negative Breast Density - Category B - Scattered areas of fibroglandular density Breast density Category C or D implies that the patient has dense breast tissue. Dense breast tissue can make it harder to find cancer on a mammogram. Dense breast tissue is also associated with an incr eased risk of breast cancer. This information about the result of the mammogram report was provided to the patient to raise their awareness. Use this report when you speak with the patient about their risks for breast cancer, which includes their family history. At that time, you may recommend additional screening tests (Ultrasoun d or MRI) as these tests may add significant information. A negative radiographic report should not delay biopsy if a dominant or clinically suspicious mass is present. Up to ten percent of cancers are not identified on mammography. A negative report may reinforce clinical impression. Adenosis and dense breasts may obscure an underlying neoplasm. False positive reports average 6 to 10%. Patient will receive a letter notifying them of these results.
== END 2022-12-20 02:54 ==
LOC: DI 02:35
PROVIDERS: PCP Nurse Practitioner Family; Visit Provider Nurse Practitioner Family
DX: Z12.31 Encounter for screening mammogram for malignant neoplasm of breast (principal)
CPT/HCPCS: 77063; 77067

== ENCOUNTER → 2023-12-25 00:43 | Outpatient (CLI) | payer OTHER, SELFPAY ==
--- NOTE | 2023-12-25 12:00 | DI.MAMMO_ITS ---
Exam(s) MAMMO SCREENING EXAM: MAMMO SCREENING CLINICAL HISTORY: screening, Z12.39 TECHNIQUE: Mammograms were interpreted according to the usual protocol including computer analysis w ecomom CAD system, tomosynthesis and C-view imaging. COMPARISON: 2013 through 2022 FINDINGS: The breasts are composed of scattered fibroglandular densities, Breast Density category B. No suspicious masses or suspicious microcalcifications are seen. No skin thickening or abnormal axillary lymph nodes are seen. There has been no significant change from prior exams. IMPRESSION: BI-RADS Category 1, Negative mammogram Yearly screening mammography is recommended. Breast Density - Category B, scattered fibroglandular densities. A negative radiographic report should not delay biopsy if a dominant or clinically suspicious mass is present. Up to ten percent of cancers are not identified on mammography. A negative report may reinforce clinical impression. Adenosis and dense breasts may obscure an underlying neoplasm. False positive reports average 6 to 10%. Patient will receive a letter notifying them of these results.
== END ==
PROVIDERS: PCP Nurse Practitioner Family; Visit Provider Nurse Practitioner Family
DX: Z12.39 Encounter for other screening for malignant neoplasm of breast (principal); Z12.31 Encounter for screening mammogram for malignant neoplasm of breast
CPT/HCPCS: 77063; 77067

== ENCOUNTER 2024-07-26 08:55 | Observation (INO) | payer MEDICARE, SELFPAY ==
[2024-07-26] VITALS (47 sets, daily range): BP systolic 134–172; BP diastolic 58–122; PULSE 57–90; RESP 14–16; TEMP 36.4–36.7; O2SAT 93–100
--- NOTE | 2024-07-26 09:25 | W.ED.GENAD ---
Discharge Plan Disposition Patient Disposition: Admit to [facility] Condition: Good Discharge Details Chief Complaint: Nk/Back Pain Clinical Impression: Low back pain radiating to left lower extremity, Anterolisthesis of lumbar spine Admit Date/Time: 07/26/24 12:48 Admit Provider: Hiram Cherry Attending Provider: Hiram Cherry Primary Care Provider: Jacobo Leach ED Provider: Diane Lott General Date/Time Provider Initiated Documentation: 07/26/24 08:56. Limitations to Documentation: no limitations. Information obtained by: patient, family, RN notes reviewed and old records reviewed. History of Present Illness 74 year old F presents to the emergency department with the chief complaint of Recurrence of severe lower back pain, described as severe and similar to prior episodes (Significantly worse, now unable to move), and is localized to the back. Patient extremity (Left lower). Patient started experiencing this day(s) and it has been constant. Immobilization improves symptom(s), Movement worsens symptoms . Patient notes no other symptoms.. Patient did receive the following treatments prior to arrival, other (began steroids yesterday) Related Data Home Medications ?Medication ?Instructions ?Recorded ?Confirmed aspirin 81 mg tablet,delayed 81 mg PO DAILY 03/25/13 07/26/24 release (Aspir-) multivitamin 1 ea PO DAILY 03/25/13 07/26/24 triamcinolone acetonide 0.025 % 1 applic topical BID #80 grams 08/22/20 07/26/24 topical cream elderberry fruit 350 mg capsule mg PO 11/23/22 07/25/24 omega-3 fatty acids 500 mg capsule 1,000 mg PO DAILY 11/23/22 07/26/24 potassium chloride 10 mEq See Rx Instructions .Route 03/11/24 07/26/24 tablet,extended release .COMPLEX #90 tabs lisinopril 20 See Rx Instructions .Route 04/28/24 07/26/24 mg-hydrochlorothiazide 25 mg tablet .COMPLEX #90 tabs pravastatin 20 mg tablet See Rx Instructions .Route 04/28/24 07/26/24 .COMPLEX #90 tabs lidocaine 5 % topical patch 1 patch topical DAILY #15 ea 07/25/24 07/26/24 Previous Rx's ?Medication ?Instructions ?Recorded triamcinolone acetonide 0.025 % 1 applic topical BID #80 grams 08/22/20 topical cream potassium chloride 10 mEq See Rx Instructions .Route 03/11/24 tablet,extended release .COMPLEX #90 tabs lisinopril 20 See Rx Instructions .Route 04/28/24 mg-hydrochlorothiazide 25 mg tablet .COMPLEX #90 tabs pravastatin 20 mg tablet See Rx Instructions .Route 04/28/24 .COMPLEX #90 tabs lidocaine 5 % topical patch 1 patch topical DAILY #15 ea 07/25/24 Allergies Allergy/AdvReac Type Severity Reaction Status Date / Time hexachlorophene Allergy Intermediate RASH Verified 07/26/24 09:08 (Hexachlorophene) General Stated Complaint: Nk/Back Pain VERONA: 3 Review of Systems Constitutional Constitutional: Reports as per HPI, Denies chills, Denies fever(s) and Denies frequent falls Cardiovascular Cardiovascular: Denies chest pain, Denies dyspnea and Denies dyspnea on exertion Respiratory Respiratory: Denies cough, Denies dyspnea and Denies dyspnea on exertion Gastrointestinal Gastrointestinal: Denies abdominal pain, Denies change in bowel habits and Denies fecal incontinence Genitourinary Genitourinary: Reports as per HPI, Denies urinary incontinence and Denies urinary hesitancy Musculoskeletal Musculoskeletal: Reports as per HPI, Reports back pain, Denies muscle weakness, Denies numbness, Reports stiffness and Denies tingling Integumentary/Breasts Skin/Breast: Reports as per HPI and Denies rash Neurologic Neurologic: Reports as per HPI, Denies frequent falls, Denies localized weakness, Denies numbness, Denies radicular pain, Denies sensory deficit, Denies tingling and Denies paresthesias Exam Const General: cooperative, healthy appearing, comfortable, no acute distress, well developed and well groomed Nutritional Appearance: average body habitus and well nourished Orientation: alert and awake Eyes General: appearance normal, both eyes and all related structures Resp Effort & Inspection: normal respiratory effort and able to speak in complete sentences Auscultation: clear to auscultation bilaterally, no rales, no rhonchi and no wheezes Cardio Rate: regular rate Rhythm: regular rhythm Heart Sounds: S1 normal and S2 normal Back/Spine/Pelvis Thoracic/Lumbar Spine: thoracic and lumbar spine normal to inspection, No thoraco-lumbar ROM normal, No paraspinal tenderness, thoraco-lumbar ROM limited, No thoracic spinal tenderness, No lumbar spinal tenderness and straight leg raise positive Pelvis: no pain with anterior-posterior compression and no pain with lateral compression Skin General skin exam: no rashes or lesions noted Neuro General: patient alert and patient awake Cognition: normal cognition Speech: speech normal Motor: muscle tone normal throughout, no movement abnormalities noted and no fasciculations Sensory Exam: no sensory deficits noted (no saddle paresthesias) Extrem General: normal to inspection, full ROM, capillary refill normal, no joint enlargement, no pedal edema, no calf tenderness and normal gait Course Vital Signs Vital signs: Vital Signs Temperature 36.4 C 07/26/24 09:01 Pulse 76 07/26/24 09:01 Respiratory Rate 14 07/26/24 09:01 Blood Pressure 160/81 H 07/26/24 09:01 Pulse Oximetry 99 07/26/24 09:01 Temperature 36.4 C 07/26/24 09:01 Temperature Source Oral 07/26/24 09:01 Pulse 76 07/26/24 09:01 Respiratory Rate 14 07/26/24 09:01 Blood Pressure 139/66 07/26/24 09:18 Blood Pressure Position Sitting 07/26/24 09:01 Pulse Oximetry 99 07/26/24 09:01 Oxygen Delivery Method Room Air 07/26/24 09:01 Oxygen Flow Rate 0 07/26/24 09:01 Pain Level 10 07/26/24 09:10 Medical Decision Making Patient is a pleasant 74 year old female, brought in by family, with c/c of recurrent left lower back pain. She has had intermittent back back pain for the past 5 years after prior injury. Typically, she is able to treat this with ice packs or heat and pain resolved. However, his pain has now been ongoing for the past week and continues to increase. She was seen by urgent care yesterday who started on methylprednisolone, anti-inflammatory, Tylenol and lidocaine patches. She was also referred to physical therapy. Despite this, the patient reports that her pain is now to the point that she is not able to get herself out of bed or move much due to discomfort. She has not taken anything for her discomfort this morning. She denies any fevers or chills. No recent illness. No recent trauma or fall. She has not had any incontinence or difficulty with bowel or bladder function. She denies any numbness or tingling. While she does have significant pain with movement, she is not having exquisite weakness. On exam, patient appears uncomfortable. She is 2+ distal pulses in her lower extremities bilaterally. No abdominal tenderness with palpation, no pulsatile mass. No saddle paresthesias or sensory deficits elsewhere. She does have good strength although movement of the left lower extremity does cause significant discomfort. Midline tenderness is not able to reproduce her pain, seems slightly more to the left but any type of movement does cause significant discomfort. No step-off, erythema, warmth or change in the skin. Patient is reporting that she feels some popping and cracking in her spine but this is not objectively noted at this time. Patient is able to move both of her lower extremities and assessing distal to the knee of much more easy as this seems to allow her to isolate her back. However, pain is significantly exacerbated with any movement of the hip, particular in the left side. Secondary to the discomfort, difficult to evaluate the strength of the left hip as pain seems to be more of the limiting issue. Given the severity of the discomfort, increasing symptoms despite Typical management options, we will move forward with imaging of her back. I do not see indication at this time for cauda equina. Her history and exam is not consistent with infectious etiology. More concern for potential compression fracture, particular given her age. Will give Tylenol, ibuprofen, lidocaine patch and will give methocarbamol. Her family is here we did discuss that this can make her drowsy. CT reviewed by myself, concerned with significant slip at L4-L5. Pushed images to , will consult with spine team and wait for final radiology read. Contacted by [facility] who is covering spine, they reviewed the imaging. They advised that patient will require MRI based on imaging findings. They advised to arrange for close f/u with MRI but will call back. Post void 190cc CT reviewed by radiologist FINDINGS: Bones/joints: There are moderate degenerative changes of the sacroiliac joints. Bilateral L4-L5 facet joint arthropathy with moderate anterolisthesis of L4 over L5. Mild retrolisthesis of T12 over L1. Posterior osteophyte disc complex at L5-S1 causing mild bony canal stenosis, moderate narrowing of the left and mild narrowing of the right neural foramen. There is moderate to severe bony canal stenosis at L4-L5 with moderate narrowing of both neural foramina. No acute fracture. No compression deformity. Vasculature: Calcified atheromas of the visualized arteries. Soft tissues: Unremarkable. IMPRESSION: Moderate to severe bony canal stenosis at L4-L5 due to facet joint arthropathy and anterolisthesis. Consulted with neurosurgery again at , reviewed imaging and PVR. They advised admission for pain control, medrol dose pac which had been started yesterday. Recommends [facility] tomorrow. Will discuss with hospitalist. Will continue to monitor for radicular symptoms. Reach out sooner if increasing neurologic symptoms. they advise that should she worsen, they will consider more emergent evaluation. I discussed this plan with the patient and her family. Again, at this point I do not note evidence to suggest cauda equina. However, patient will need admission for continued pain management as well as MRI tomorrow morning. Consulted with the hospitalist who agrees to admission. Quality:SDOH Health Related Social Needs: No Data to Display PFSH All Active Problems (Updated 07/26/24 @ 14:28 by ADONAY Alonso) Anterolisthesis of lumbar spine (Acute) Low back pain radiating to left lower extremity (Acute) Hypokalemia due to excessive renal loss of potassium (Acute) Obesity (BMI 30.0-34.9) (Chronic) Tubular adenoma (Acute) Colon polyp (Acute) Elevated glucose level (Acute) Colon cancer screening (Acute) Constipation (Acute) Essential hypertension (Acute 03/24/13) Hyperlipidemia (Acute 04/09/12) 10 year risk 17.7% Tobacco use disorder (Acute) Surgical History History of colonoscopy with polypectomy (~02/10/21) S/P appendectomy S/P cholecystectomy Dilation and curettage DUB Family History Mother , AGE 83 Diabetes Essential hypertension Heart disease Hyperlipidemia Sister No problems noted. Sister Essential hypertension Sister Diabetes Maternal Grandfather No problems noted. Paternal Grandfather , AGE 86 Stroke Maternal Grandmother , AGE 86 No problems noted. Paternal Grandmother , AGE 99 No problems noted. Father , AGE 91 Essential hypertension Heart disease Stroke Son No problems noted. Son Essential hypertension Daughter No problems noted. Daughter No problems noted. Daughter No problems noted. Social History (Updated 01/01/24 @ 16:16 by Kailee Dunbar) Smoking/Tobacco Use Status: Current every day Tobacco Type: cigarettes Quit status: considering quitting Second Hand Exposure: No Smoking risk assessment performed?: Yes Alcohol Intake: never Drug use: Never Substance use type: does not use Caregiver/Support person: No Household members: significant other Housing: house Communication Needs: None and Corrective Lenses Do you need help understanding health information?: Rarely Pets and animals: Yes (Ponies) Sexually active: No Do you think of yourself as: straight/heterosexual Current gender identity: female What is your relationship status?: living with partner How often do you talk on the phone with friends or family?: once per week How often do you get together with friends or relatives?: once per week How often do you attend tenriism or spiritism services?: 1-3 times per year Do you belong to any clubs or organized social groups?: no Panel score (0-1 are the most socially isolated patients): 1 What type of physical activity do you participate in: walking and other Details: [employer] Ball Ezra Mendezi Duration: < 15 minutes/day Frequency: 1-2 times per week Daisha/Bahai: Hinduism Special daisha needs: No Seatbelt use: always Drive intox or ride w/intox refrigerated national truck driver: No Do you feel safe at home: Yes Do you feel safe in your relationship?: Yes
[2024-07-26] MEDS: Ibuprofen 600 MG TAB PO (09:44)
[2024-07-26] MEDS: Acetaminophen 325 MG TAB 650 MG PO ×3 (09:44→19:55)
[2024-07-26] MEDS: Lidocaine 5% Patch 1 PATCH TP ×2 (09:44→20:54)
[2024-07-26] MEDS: Methocarbamol 750 MG TAB PO (09:47)
--- NOTE | 2024-07-26 10:06 | DI.CT_ITS ---
Exam(s) CT LUMBAR SPINE WO EXAM: CT LUMBAR SPINE WO CLINICAL HISTORY: severe back pain, radiation LLL. TECHNIQUE: Imaging Protocol: Axial computed tomography images with coronal and sagittal reformatted images were created and reviewed COMPARISON: No exams were available for comparison FINDINGS: Bones: The last intervertebral disc space is designated the L5/S1 level for the numbering purpose of this examination. The vertebral body heights are well maintained. Alignment is satisfactory. No fracture is seen. T11-12: Severe loss of disc height. Endplate osteophytes and sclerosis. T12-L1: Moderate loss of disc height. Endplate osteophytes and endplate sclerosis. No disc herniati ons or bulges are present. L1-2: Mild disc bulging. L2-3: Mild disc bulging. L3-4: Mild disc bulging. L4-5: Severe facet degenerative changes causes grade 1 spondylolisthesis.. Mild loss of disc height . Mild disc bulging. Ligamentous hypertrophy. The degenerative changes combine to produce severe c entral canal stenosis. There is also bilateral neural foraminal narrowing. L5-S1: Severe loss of disc height. Osteophytes projecting posteriorly. Facet degenerative changes. Severe bilateral neural foraminal narrowing. No central canal stenosis. The visualized SI joints and sacrum are well maintained. Soft Tissues: The paraspinal soft tissues are unremarkable. IMPRESSION: Severe facet degenerative changes causes mild L5-4 5 spondylo all listhesis. Combination of degenera tive changes causes severe bilateral neural foraminal narrowing as well as severe central canal steno sis. There is severe bilateral neural foraminal narrowing at L5-S1 secondary to combination of facet degenerative changes and endplate osteophytes. RADIATION DOSE DELIVERED: Total DLP DATA REPOSITORY: All CT scans at this facility are submitted to the National Radiology Data Registry (NRDR) Dose Index Registry (DIR) with the [employer] (A[employer]). RADIATION OPTIMIZATION: All CT scans at this facility use at least one of these dose optimization te chniques: automated exposure control; mA and/or kV adjustment per patient size (includes targeted exa ms where dose is matched to clinical indication); or iterative reconstruction.
[2024-07-26] MEDS: oxyCODONE 5 MG TAB PO ×2 (10:33→17:44)
--- NOTE | 2024-07-26 10:44 | DI.VRAD_ITS ---
PROCEDURE INFORMATION: Exam: CT Lumbar Spine Without Contrast Exam date and time: 07/26/2024 9:58 AM Age: 74 years old Clinical indication: Low back pain; Severe back pain, radiation lll TECHNIQUE: Imaging protocol: Computed tomography of the lumbar spine without contrast. Radiation optimization: All CT scans at this facility use at least one of these dose optimization techniques: automated exposure control; mA and/or kV adjustment per patient size (includes targeted exams where dose is matched to clinical indication); or iterative reconstruction. COMPARISON: No relevant prior studies available. FINDINGS: Bones/joints: There are moderate degenerative changes of the sacroiliac joints. Bilateral L4-L5 facet joint arthropathy with moderate anterolisthesis of L4 over L5. Mild retrolisthesis of T12 over L1. Posterior osteophyte disc complex at L5-S1 causing mild bony canal stenosis, moderate narrowing of the left and mild narrowing of the right neural foramen. There is moderate to severe bony canal stenosis at L4-L5 with moderate narrowing of both neural foramina. No acute fracture. No compression deformity. Vasculature: Calcified atheromas of the visualized arteries. Soft tissues: Unremarkable. IMPRESSION: Moderate to severe bony canal stenosis at L4-L5 due to facet joint arthropathy and anterolisthesis. Dictated and Authenticated by: Musa Guan MD. Orderin Oren Contreras MD
--- NOTE | 2024-07-26 12:59 | W.PM.HP.N ---
Date of service: 07/26/24 Time of Service: 12:59 Assessment and Plan Assessment and plan (1) Low back pain radiating to left lower extremity: Status: Acute Assessment and plan: referred to observation, failed pain control in ED CT scan:Moderate to severe bony canal stenosis at L4-L5 due to facet joint arthropathy and anterolisthesis. discussed with neurosurgery at [facility]: consult with neurosurgery at [facility] with recommendation for obs for pain control, neurovasc monitoring, steroids and MRI tomorrow. (2) Essential hypertension: Status: Acute Assessment and plan: continue home lisinopril/hctz monitor routinely and adjust as needed (3) Hyperlipidemia: Status: Acute Assessment and plan: continue statin (4) Hypokalemia due to excessive renal loss of potassium: Status: Acute Assessment and plan: continue home potassium (5) Tobacco use disorder: Status: Acute Assessment and plan: offer nicotine supplementation as needed. discussed with DR Cherry History of Present Illness Narrative: presents with low back pain with radiation CT scan discussed with neurosurgery at [facility] Review of Systems All systems reviewed & are unremarkable except as noted in HPI and below PFSH All Active Problems (Updated 07/26/24 @ 14:28 by ADONAY Alonso) Anterolisthesis of lumbar spine (Acute) Low back pain radiating to left lower extremity (Acute) Hypokalemia due to excessive renal loss of potassium (Acute) Obesity (BMI 30.0-34.9) (Chronic) Tubular adenoma (Acute) Colon polyp (Acute) Elevated glucose level (Acute) Colon cancer screening (Acute) Constipation (Acute) Essential hypertension (Acute 03/24/13) Hyperlipidemia (Acute 04/09/12) 10 year risk 17.7% Tobacco use disorder (Acute) Surgical History History of colonoscopy with polypectomy (~02/10/21) S/P appendectomy S/P cholecystectomy Dilation and curettage DUB Family History Mother , AGE 83 Diabetes Essential hypertension Heart disease Hyperlipidemia Sister No problems noted. Sister Essential hypertension Sister Diabetes Maternal Grandfather No problems noted. Paternal Grandfather , AGE 86 Stroke Maternal Grandmother , AGE 86 No problems noted. Paternal Grandmother , AGE 99 No problems noted. Father , AGE 91 Essential hypertension Heart disease Stroke Son No problems noted. Son Essential hypertension Daughter No problems noted. Daughter No problems noted. Daughter No problems noted. Social History (Updated 01/01/24 @ 16:16 by Kailee Dunbar) Smoking/Tobacco Use Status: Current every day Tobacco Type: cigarettes Quit status: considering quitting Second Hand Exposure: No Smoking risk assessment performed?: Yes Alcohol Intake: never Drug use: Never Substance use type: does not use Caregiver/Support person: No Household members: significant other Housing: house Communication Needs: None and Corrective Lenses Do you need help understanding health information?: Rarely Pets and animals: Yes (Ponies) Sexually active: No Do you think of yourself as: straight/heterosexual Current gender identity: female What is your relationship status?: living with partner How often do you talk on the phone with friends or family?: once per week How often do you get together with friends or relatives?: once per week How often do you attend pentecostalism or restorationism services?: 1-3 times per year Do you belong to any clubs or organized social groups?: no Panel score (0-1 are the most socially isolated patients): 1 What type of physical activity do you participate in: walking and other Details: [employer] Duration: < 15 minutes/day Frequency: 1-2 times per week Daisha/Mormonism: Samaritan Special daisha needs: No Seatbelt use: always Drive intox or ride w/intox dedicated regional driver: No Do you feel safe at home: Yes Do you feel safe in your relationship?: Yes Meds Allergies and Home Medications Allergies Allergy/AdvReac Type Severity Reaction Status Date / Time hexachlorophene Allergy Intermediate RASH Verified 07/26/24 09:08 (Hexachlorophene) Home Medications ?Medication ?Instructions ?Recorded ?Confirmed ?Type aspirin 81 mg tablet,delayed 81 mg PO DAILY 03/25/13 07/26/24 History release (Aspir-) multivitamin 1 ea PO DAILY 03/25/13 07/26/24 History triamcinolone acetonide 0.025 % 1 applic topical BID #80 grams 08/22/20 07/26/24 Rx topical cream elderberry fruit 350 mg capsule 350 mg PO HS 11/23/22 07/26/24 History omega-3 fatty acids 500 mg capsule 1,000 mg PO DAILY 11/23/22 07/26/24 History potassium chloride 10 mEq See Rx Instructions .Route 03/11/24 07/26/24 Rx tablet,extended release .COMPLEX #90 tabs lisinopril 20 See Rx Instructions .Route 04/28/24 07/26/24 Rx mg-hydrochlorothiazide 25 mg tablet .COMPLEX #90 tabs pravastatin 20 mg tablet See Rx Instructions .Route 04/28/24 07/26/24 Rx .COMPLEX #90 tabs lidocaine 5 % topical patch 1 patch topical DAILY #15 ea 07/25/24 07/26/24 Rx Exam Narrative Exam Narrative: Well-appearing female of stated age no acute distress head is atraumatic neurologic awake alert oriented no focal deficits psychiatric appropriate mood and affect facial features symmetrical eyes nonicteric noninjected oral mucosas moist cardiovascular regular rate and rhythm good pedal pulse respirations even and unlabored abdomen benign unable to perform straight leg raise on the left due to pain. Sensation is intact good movement good strength equal bilaterally Results Last Vital Signs Temp 36.4 C 07/26/24 09:01 Pulse 67 07/26/24 11:45 Resp 14 07/26/24 10:21 BP 147/67 H 07/26/24 11:45 Pulse Ox 96 07/26/24 11:45 Time Spent Time spent with Patient: 55-74 minutes Time was spent: preparing to see the patient(eg.review tests), obtaining and/or reviewing separately otained hiistory, ordering medications,tests, procedures, indepentently interpreting results and counseling the patient
[2024-07-26] MEDS: methylPREDNISolone 4 MG TAB PO (13:17)
[2024-07-26] MEDS: HYDROmorphone 2 MG/ML SYR 0.5 MG IVP (13:18)
--- NOTE | 2024-07-26 14:48 | W.PC.ACHO ---
Registration Status: Primary Language: Preferred Language: ED Information & Data Chief Complaint Nk/Back Pain 07/26/24 09:32 Triage Note pt fell 5 years ago, but has 07/26/24 09:01 pain flare up, this time pain flare up started last week, to left leg and left lower back tried heat and cold therapy , pt. had increased pain yesterday, went to urgent care, had lidocaine patches and methylprednisolone. no relief (Last Reviewed 12/18/23 @ 12:49 by Jacobo Hicks NP) History of colonoscopy with polypectomy (~02/10/21) S/P appendectomy S/P cholecystectomy Dilation and curettage Most Recent Vital Signs Temperature 36.5 C 07/26/24 14:21 Temperature Source Oral 07/26/24 09:01 Pulse 67 07/26/24 14:21 Respiratory Rate 16 07/26/24 14:21 Respiratory Depth Normal 07/26/24 10:21 Blood Pressure 150/66 H 07/26/24 14:21 Blood Pressure Mean 89 07/26/24 13:31 Blood Pressure Position Sitting 07/26/24 10:21 Pulse Oximetry 99 07/26/24 14:21 Oxygen Delivery Method Room Air 07/26/24 14:21 Oxygen Flow Rate 0 07/26/24 14:21 Pain Level 5 07/26/24 14:21 Allergies hexachlorophene (Hexachlorophene) Allergy (Intermediate, Verified 07/26/24 09:08) RASH IV IV Catheter Type [Right Peripheral IV Antecubital] IV Catheter Gauge [Right 20 Antecubital] Diet Orders Category Date Time Status Regular/Normal [DIET] Nutrition 07/26/24 Lunch Active Intake and Output - 24 Hour Total 07/26/24 08:55 thru 07/26/24 14:21 Weight 75.296 kg Other: Comment post void Falls Risk Assessment History of Falls Previous History 07/26/24 14:21 Contributing Factors No Factors 07/26/24 14:21 Ambulatory Aids Independent 07/26/24 14:21 Tubes/Lines None 07/26/24 14:21 Gait Evaluation No gait disturbance 07/26/24 14:21 Cognition No cognitive impairment 07/26/24 14:21 Fall Total Score 15 07/26/24 14:21 Level of Risk Standard/Low Risk 07/26/24 14:21 Problems (Last Reviewed 07/24/24 @ 12:49 by Jacobo Hicks NP) Anterolisthesis of lumbar spine (Acute) Low back pain radiating to left lower extremity (Acute) Hypokalemia due to excessive renal loss of potassium (Acute) Essential hypertension (Acute 03/24/13) Hyperlipidemia (Acute 04/09/12) Tobacco use disorder (Acute) v v v v v v v v v Sending and/or Receiving Nurses: Please use comment section below to note any information pertinent to the patient hand-off not included above. Information / Comments: Report received from:Melita NOWAK
[2024-07-26] MEDS: Normal Saline Flush 10 ML SYR IVP ×3 (15:47→19:56)
[2024-07-26] MEDS: Ketorolac 15 MG/ML VIAL IVP (18:50)
[2024-07-26] MEDS: Multivitamin TAB 1 TAB PO (19:54)
[2024-07-26] MEDS: Lisinopril 20 MG TAB PO (19:54)
[2024-07-26] MEDS: Pravastatin 20 MG TAB PO (19:55)
[2024-07-26] MEDS: hydroCHLOROthiazide 25 MG TAB PO (19:55)
[2024-07-26] MEDS: Aspirin E.C. 81 MG TABEC PO (19:55)
[2024-07-27] MEDS: oxyCODONE 5 MG TAB PO ×3 (00:51→20:24)
[2024-07-27] MEDS: Ketorolac 15 MG/ML VIAL IVP ×3 (05:16→18:17)
[2024-07-27 06:41] VITALS: BP 123/60; PULSE 65; RESP 16; TEMP 36.6; O2SAT 95
[2024-07-27] MEDS: predniSONE 20 MG TAB 40 MG PO (08:39)
[2024-07-27] MEDS: Acetaminophen 325 MG TAB 650 MG PO ×4 (08:39→20:27)
[2024-07-27] MEDS: Normal Saline Flush 10 ML SYR IVP ×2 (08:40→20:28)
[2024-07-27] MEDS: Patch Removal 1 EACH TP (08:40)
--- NOTE | 2024-07-27 09:22 | INITIAL_ITS ---
Date of service: 07/27/24 Time of Service: 09:22 Care Management Initial Assmt Initial Assessment Reason for Hospitalization: Lumbago with Radiculopathy Functional Status/Living Situation Patient Presentation: Sarah was awake and lying in bed when CM met with her. She is pleasant and easily engages in conversation. Per pt, shes had sciatic pain for many years and Saturday she was in so much pain she was unable to get out of bed. Her pain is tolerable while shes lying down and uncontrollable when she moves. PT is ordered, however she doesn't think she will be able to work with them. 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 She is fully independent at baseline. Her primary supports are her supervisor grips Mark Anthony, his sisters Tracey and Zakiya and her children Toni and Laura. Town of Residence: [place] Resides with: Other (Male Java Technical Manager Mark Anthony Sanchez) Significant Other/Family: Local Natural Supports: Employment Status: Retired Instrumental Activities of Daily Living (ADLs): Independent Medications Medication Management: No Issues/Barriers identified Physical Functioning/Mobility Assistive Device: None Advance Directives Advance Directives: Do you have an Advance Directive: Y 01/23/24 08:28 AD On File at [facility]: Y 01/23/24 08:28 Date Asked 07/26/24 07/26/24 14:13 AD Date Reviewed 07/26/24 07/26/24 09:02 COLST On File at [facility] COLST Date Scanned Code Status Resuscitation Status Full Code Portal Pt does not currently have a portal and education provided: Yes Insurance Coverage/Financial Issues Insurance: ? BC/BS [facility] BC/BS [facility] Care Team Visit Care Team Role Provider Type Marlene Nunn NP NURSE PRACTITIONER Jacobo Hicks NP Primary Care Provider NURSE PRACTITIONER InPatient Paul Faulkner Other Providers OTHER ADONAY Alonso Emergency Provider PHYSICIANS ASSISTANT Hiram Cherry Admit Provider [facility] STAFF PHYSICIAN Attending Provider Discharge Potential Discharge Needs: PCP F/U Appt Anticipated Barriers to Discharge: Medical Status Patient/Family Education Needs: Review discharge instructions, discuss Ask Me Three Transportation: Private vehicle Plan: Anticipate Sarah will discharge home via private vehicle with family when medically ready for discharge. Pt will follow up with community providers and her discharge plan of care as instructed. PT consult is pending. CM will follow. Social Determinants of Health Screening Social Determinants of Health last assessed: 07/27/24 Will the Patient Participate in the Screening?: Unable to obtain Do you worry about having a steady place to live?: choose not to answer Problems where you live: no known problems In the past 12 months, have you had to go without electric, gas, oil or water in your home?: no Have you or anyone in your house had to go without enough food to eat?: no Has lack of transportation kept you from medical appointments or from doing things needed for daily living?: no Has anyone in your life made you feel unsafe or unsupported?: choose not to answer How hard is it for you to pay for the very basics like food, housing, medical care, and heating? Would you say it is:: Not hard at all Do you want help finding or keeping work or a job?: I do not need or want help If for any reason you need help with day-to-day activities such as bathing, preparing meals, shopping, managing finances, etc., do you get the help you need?: I get all the help I need How often do you feel lonely or isolated from those around you?: Never Do you speak a language other than Macedonian at home?: No Does the patient want assistance with any of the above?: No PFSH All Active Problems (Updated 07/26/24 @ 14:28 by ADONAY Alonso) Anterolisthesis of lumbar spine (Acute) Low back pain radiating to left lower extremity (Acute) Hypokalemia due to excessive renal loss of potassium (Acute) Obesity (BMI 30.0-34.9) (Chronic) Tubular adenoma (Acute) Colon polyp (Acute) Elevated glucose level (Acute) Colon cancer screening (Acute) Constipation (Acute) Essential hypertension (Acute 03/24/13) Hyperlipidemia (Acute 04/09/12) 10 year risk 17.7% Tobacco use disorder (Acute) Surgical History History of colonoscopy with polypectomy (~02/10/21) S/P appendectomy S/P cholecystectomy Dilation and curettage DUB Family History Mother , AGE 83 Diabetes Essential hypertension Heart disease Hyperlipidemia Sister No problems noted. Sister Essential hypertension Sister Diabetes Maternal Grandfather No problems noted. Paternal Grandfather , AGE 86 Stroke Maternal Grandmother , AGE 86 No problems noted. Paternal Grandmother , AGE 99 No problems noted. Father , AGE 91 Essential hypertension Heart disease Stroke Son No problems noted. Son Essential hypertension Daughter No problems noted. Daughter No problems noted. Daughter No problems noted. Social History (Updated 01/01/24 @ 16:16 by Kailee Dunbar) Smoking/Tobacco Use Status: Current every day Tobacco Type: cigarettes Quit status: considering quitting Second Hand Exposure: No Smoking risk assessment performed?: Yes Alcohol Intake: never Drug use: Never Substance use type: does not use Caregiver/Support person: No Household members: significant other Housing: house Communication Needs: None and Corrective Lenses Do you need help understanding health information?: Rarely Pets and animals: Yes (Ponies) Sexually active: No Do you think of yourself as: straight/heterosexual Current gender identity: female What is your relationship status?: living with partner How often do you talk on the phone with friends or family?: once per week How often do you get together with friends or relatives?: once per week How often do you attend nondenominational or alevism services?: 1-3 times per year Do you belong to any clubs or organized social groups?: no Panel score (0-1 are the most socially isolated patients): 1 What type of physical activity do you participate in: walking and other Details: [employer] Duration: < 15 minutes/day Frequency: 1-2 times per week Daisha/Voodoo: Pentecostalism Special daisha needs: No Seatbelt use: always Drive intox or ride w/intox school bus driver: No Do you feel safe at home: Yes Do you feel safe in your relationship?: Yes
--- NOTE | 2024-07-27 09:59 | W.PM.PROGNOT ---
Date of Service Date of service: 07/27/24 Time of Service: 09:59 Assessment and Plan Assessment and plan (1) Low back pain radiating to left lower extremity: Status: Acute Assessment and plan: referred to observation, and MRI as per [facility] neurosurgery Failed pain control in ED, will schedule ketorolac in addition to acetaminophen. Ongoing as needed oxycodone Continue oral steroids PPI and methocarbamol added Continue neurovascular monitoring CT scan:Moderate to severe bony canal stenosis at L4-L5 due to facet joint arthropathy and anterolisthesis. discussed with neurosurgery at [facility]: consult with neurosurgery at [facility] to follow-up status post MRI MRI completed report pending (2) Essential hypertension: Status: Acute Assessment and plan: On home regimen with lisinopril/hctz monitor routinely and adjust as needed BMP in the morning (3) Hyperlipidemia: Status: Acute Assessment and plan: On home dose statin (4) Hypokalemia due to excessive renal loss of potassium: Status: Acute Assessment and plan: O n home dose of potassium (5) Tobacco use disorder: Status: Acute Assessment and plan: NRT PRN discussed with Dr Cherry Subjective Subjective Patient reports: still having pain (Left flank pain radiating from lower back with push and pull, describes spasms), tolerating liquids well, tolerating a regular diet and voiding w/o difficulty; denies diarrhea, vomiting, shortness of breath or fever Exam Narrative Exam Narrative: Alert oriented x 4, no focal deficit, unlabored breathing clear lungs, S1-S2, no murmur, abdomen is nondistended soft nontender, moves all 4 extremities Objective Last Vital Signs Temp 36.6 C 07/27/24 06:41 Pulse 65 07/27/24 06:41 Resp 16 07/27/24 06:41 BP 123/60 07/27/24 06:41 Pulse Ox 95 07/27/24 06:41 Time Spent with Patient Time Spent with Patient: >50 minutes Time was spent: preparing to see the patient(eg.review tests), obtaining and/or reviewing separately otained hiistory, ordering medications,tests, procedures, referring, communicating with other health home care aide, indepentently interpreting results, counseling the patient and care coordination
[2024-07-27] MEDS: Pantoprazole 40 MG VIAL IVP (11:19)
[2024-07-27 12:16] LABS: Abs Immature Grans 0.03 10^3/uL (0.0-0.06); Absolute Basophil Count 0.05 10^3/uL (0.0-0.2); Absolute Eosinophil Count 0.01 10^3/uL (0.0-0.7); Absolute Lymphocyte Count 1.22 10^3/uL (1.2-3.4); Absolute Monocyte Count 0.17 10^3/uL (0.1-0.8); Absolute Neutrophil Count 7.97 10^3/uL (1.2-6.7); Basophils % 0.5 %; Eosinophils % 0.1 %; HCT 47.1 % (36.0-46.0); HGB 15.3 g/dL (11.2-15.7); Immature Grans % 0.3 %; Lymphocytes % 12.9 %; MCH 28.2 pg (27.0-33.0); MCHC 32.5 % (32.0-36.0); MCV 87 fL (80-95); MPV 9.9 fL (8.0-11.0); Monocytes % 1.8 %; Neutrophils % 84.4 %; Platelet Count 266 10^3/uL (130-400); RBC 5.42 10^6/uL (3.93-5.22); RDW 13.2 % (11.7-14.6); WBC 9.45 10^3/uL (4.4-10.8)
[2024-07-27 12:28] LABS: BUN 21 mg/dL (7-18); CREATININE 0.8 mg/dL (0.55-1.02); Calcium 9.8 mg/dL (8.5-10.1); Chloride 103 mmol/L (98-107); Estimated GFR 77.75 (mL/min/1.73m2); Glucose 95 mg/dL (74-106); Potassium 3.6 mmol/L (3.5-5.1); Sodium 141 mmol/L (136-145)
[2024-07-27] MEDS: Methocarbamol 500 MG TAB PO ×3 (12:36→20:24)
--- NOTE | 2024-07-27 15:45 | DI.MRI_ITS ---
Exam(s) MR LUMBAR SPINE WO EXAM: MR LUMBAR SPINE WO CLINICAL HISTORY: CT scan:Moderate to severe bony canal stenosis at. TECHNIQUE: Multiplanar multisequence MRI of the Lumbar spine was performed. COMPARISON: CT CT LUMBAR SPINE WO from 07/26/2024 FINDINGS: Conus medullaris is at normal level. There is no evidence of conus mass nor subjacent clumping of in trathecal nerve roots to suggest arachnoiditis. The distal thecal sac appears unremarkable.There is no evidence of Tarlov intrasacral cysts nor other significant findings within the sacral canal Bones:There is mild wedging of T11 vertebral body which does exhibit some mild edema on STIR images, as does the T12 vertebral body. Possibly subacute minimal compression fractures. With respect to the individual levels... T10-11: There is a disc herniation at this level which is difficult to evaluate as there are no axial images through this level in the thoracic spine. T11-12: There is advanced disc space narrowing at this level. Schmorl's node invagination noted in t he inferior endplate of T11 with some surrounding bone edema. There is annular bulging at this level which is difficult to evaluate accurately as there are no axial images at this thoracic level. Judg ing from the sagittal images this does cause some mild effacement of the anterior thecal sac at this level but no tight spinal canal stenosis. T12-L1: This level exhibits moderate-advanced disc space narrowing and broad annular bulging. There is no prominent disc herniation or central spinal canal stenosis. There is moderate bilateral forami nal stenosis at this level. Facet joints unremarkable. L1-2: Mild decreased disc height. There is asymmetric annular bulging lateral right at the level of the exiting right neural foramen resulting in moderate right-sided foraminal stenosis at this level. There is no foraminal stenosis on the opposite-left side. There is no significant central canal rosalinda nosis. There are moderate degenerative changes in the right facet joint and mild degenerative change s in the left facet joint. L2-3: Normal disc height. No disc herniation nor central canal stenosis.No foraminal stenosis.No fac et arthropathy. L3-4: Normal disc height. There is a small annular tear anteriorly in the disc which is not clinical ly significant with respect to the spinal column. Posteriorly there is no disc herniation or central canal stenosis and there is no foraminal stenosis. There is mild facet arthropathy. L4-5: There is relatively preserved disc height but there is 1 cm anterolisthesis of L4 upon L5 due t o danced facet arthropathy. This results in typical pseudo herniation of the annulus. There is no d istinct focal disc herniation. There is severe central spinal canal stenosis due to the listhesis. In addition there is moderate left-sided foraminal stenosis and mild right-sided foraminal stenosis. There is a mild compression of the exiting left nerve root between the overlying pedicle and bulging annulus in the exiting left neural foramen. There is advanced facet arthropathy. Also some ligamen olu flavum hypertrophy. L5-S1: This level exhibits advanced disc space height loss a chronic-type nature. In addition, there is annular bulging with a superimposed central subligamentous disc herniation which extends posterio rly 5 mm and is approximately 10 mm wide, this causing impression upon the anterior aspect of the the jose m sac at this level. The annular bulging extends into the floor both exiting neural foramina. The re does not appear to be significant foraminal stenosis on the right side. There is mild foraminal s tenosis on the left side. There is moderate degenerative changes in the facet joints, slightly more so on the left side. Soft tissues: paraspinal soft tissues appear unremarkable. IMPRESSION: 1. Multilevel significant findings as described individually above. 2. There is severe central spinal canal stenosis at L4-5, this related to 1 cm anterolisthesis of L4 upon L5 which itself is due to facet arthropathy. In addition, there is moderate left-sided foramina l stenosis at this level and mild right-sided foraminal stenosis. 3. In addition to advanced disc space narrowing at L5-S1 and broad annular bulging, there is also sup erimposed central subligamentous disc herniation which significantly indents the anterior thecal sac at this level, as described above. Other findings as above, including findings in the lower thoracic spine which would require additiona l axial sequences in the thoracic spine to be included for adequate assessment. There is also some m ild signal abnormality in the T11 and T12 vertebral bodies with mild anterior wedging of T11 and Schm orl's node invagination with surrounding bone edema in the inferior endplate of T11 indicating that t his is subacute. DATA REPOSITORY:
--- NOTE | 2024-07-27 16:31 | PT.INNT ---
PT Notes Visit Reasons: Lumbago with Radiculopathy Pt not available for PT evaluation as she was at MRI. Will attempt evaluation on 07/28/2024
[2024-07-27 19:32] VITALS: BP 134/66; PULSE 73; RESP 18; TEMP 36.8; O2SAT 95
[2024-07-27] MEDS: Lisinopril 20 MG TAB PO (20:24)
[2024-07-27] MEDS: hydroCHLOROthiazide 25 MG TAB PO (20:24)
[2024-07-27] MEDS: Pravastatin 20 MG TAB PO (20:24)
[2024-07-27] MEDS: Multivitamin TAB 1 TAB PO (20:27)
[2024-07-27] MEDS: Aspirin E.C. 81 MG TABEC PO (20:27)
[2024-07-27] MEDS: Lidocaine 5% Patch 1 PATCH TP (20:27)
[2024-07-28] MEDS: Ketorolac 15 MG/ML VIAL IVP ×4 (00:28→18:22)
[2024-07-28] MEDS: Normal Saline Flush 10 ML SYR IVP ×6 (00:29→21:00)
[2024-07-28] MEDS: Methocarbamol 500 MG TAB PO ×3 (00:29→09:03)
[2024-07-28 07:31] LABS: Anion Gap 9.4 mmol/L (3-11); BUN 25 mg/dL (7-18); CO2 29.6 mmol/L (21.0-32.0); CREATININE 0.9 mg/dL (0.55-1.02); Calcium 9.7 mg/dL (8.5-10.1); Chloride 104 mmol/L (98-107); Glucose 91 mg/dL (74-106); Magnesium 2.1 mg/dL (1.8-2.4); Potassium 3.2 mmol/L (3.5-5.1); Sodium 143 mmol/L (136-145)
[2024-07-28 07:40] VITALS: BP 150/63; PULSE 59; RESP 16; TEMP 36.7; O2SAT 96
[2024-07-28] MEDS: Pantoprazole 40 MG TABCR PO (07:58)
[2024-07-28] MEDS: Acetaminophen 325 MG TAB 650 MG PO ×4 (07:58→20:55)
[2024-07-28] MEDS: oxyCODONE 5 MG TAB PO (07:59)
[2024-07-28] MEDS: predniSONE 20 MG TAB 40 MG PO ×2 (07:59→11:12)
--- NOTE | 2024-07-28 09:07 | CMPROGNOTE_ITS ---
Date of service: 07/28/24 Time of Service: 09:08 Care Management Progress Note Progress Note Text Progress Note Text: Sarah is here with debilitating lower back pain and is being treated with IV Ketorolac, prednisone and Methocarbamol. She continues to have significant pain with movement and the Hospitalist has been in contact with neurosurgery at [facility]. Sarah was able to participate with PT today and the recommendation is SNF for STR vs. Home with services. Sarah's admission status is observation, and she would need a qualifying stay to for STR. Discharge Potential Discharge Needs: PCP F/U Appt Anticipated Barriers to Discharge: None Identified Patient/Family Education Needs: Review discharge instructions, discuss Ask Me Three Transportation: Private vehicle Plan: Anticipate Sarah will discharge home with New [facility] PT when medically ready for discharge. Family will transport. Pt will follow up with community providers, [facility] Neurology and her discharge plan of care as directed. CM will follow. Social Determinants of Health Screening Social Determinants of Health last assessed: 07/28/24 Will the Patient Participate in the Screening?: Unable to obtain Do you worry about having a steady place to live?: choose not to answer Problems where you live: no known problems In the past 12 months, have you had to go without electric, gas, oil or water in your home?: no Have you or anyone in your house had to go without enough food to eat?: no Has lack of transportation kept you from medical appointments or from doing things needed for daily living?: no Has anyone in your life made you feel unsafe or unsupported?: choose not to answer How hard is it for you to pay for the very basics like food, housing, medical care, and heating? Would you say it is:: Not hard at all Do you want help finding or keeping work or a job?: I do not need or want help If for any reason you need help with day-to-day activities such as bathing, preparing meals, shopping, managing finances, etc., do you get the help you need?: I get all the help I need How often do you feel lonely or isolated from those around you?: Never Do you speak a language other than Vietnamese at home?: No Does the patient want assistance with any of the above?: No
--- NOTE | 2024-07-28 09:51 | W.PM.PROGNOT ---
Date of Service Date of service: 07/28/24 Time of Service: 09:51 Assessment and Plan Assessment and plan (1) Low back pain radiating to left lower extremity: Status: Acute Assessment and plan: referred to observation, and MRI as per [facility] [place] Failed pain control in ED, will schedule ketorolac in addition to acetaminophen. Ongoing as needed oxycodone Continue oral steroids- increased dosage continue PPI Continue neurovascular monitoring CT scan:Moderate to severe bony canal stenosis at L4-L5 due to facet joint arthropathy and anterolisthesis. discussed with neurosurgery at [facility]: consult with neurosurgery at [facility] to follow-up status post MRI MRI completed report: IMPRESSION: 1. Multilevel significant findings as described individually see original report. 2. There is severe central spinal canal stenosis at L4-5, this related to 1 cm anterolisthesis of L4 upon L5 which itself is due to facet arthropathy. In addition, there is moderate left-sided foraminal stenosis at this level and mild right-sided foraminal stenosis. 3. In addition to advanced disc space narrowing at L5-S1 and broad annular bulging, there is also superimposed central subligamentous disc herniation which significantly indents the anterior thecal sac at this level, as described above. Other findings as above, including findings in the lower thoracic spine which would require additional axial sequences in the thoracic spine to be included for adequate assessment. There is also some mild signal abnormality in the T11 and T12 vertebral bodies with mild anterior wedging of T11 and Schmorl's node invagination with surrounding bone edema in the inferior endplate of T11 indicating that this is subacute. Spoke to Dr Abreu from [facility] vascular :No recommendation for Sx w/o true weakness and negative saddle anesthesia signs , with medrol pack and NSAIDs, will take 6-8 weeks to resolve . If not then reconsult - F/u with Spine in 2 months recommendation for tizanidine or cyclobenzaprine VS methocarbamol (2) Essential hypertension: Status: Acute Assessment and plan: On home regimen with lisinopril/hctz monitor routinely and adjust as needed BMP in the morning (3) Hyperlipidemia: Status: Acute Assessment and plan: On home dose statin (4) Hypokalemia due to excessive renal loss of potassium: Status: Acute Assessment and plan: On home dose of potassium (5) Tobacco use disorder: Status: Acute Assessment and plan: NRT PRN discussed with Dr Cherry Subjective Subjective Patient reports: pain is less, tolerating liquids well, tolerating a regular diet, flatus and bowel movement; denies blood in stool, nausea, vomiting, shortness of breath or fever Exam Narrative Exam Narrative: Alert oriented x 4, no focal deficit, unlabored breathing clear lungs, S1-S2, no murmur, abdomen is nondistended soft nontender, moves all 4 extremities- LLE weakness d/t to pain no true weakness Objective Last Vital Signs Temp 36.7 C 07/28/24 07:40 Pulse 59 L 07/28/24 07:40 Resp 16 07/28/24 07:40 BP 150/63 H 07/28/24 07:40 Pulse Ox 96 07/28/24 07:40 Laboratory Results - last 24 hr 07/27/24 07/28/24 12:10 06:20 WBC 9.45 RBC 5.42 H Hgb 15.3 Hct 47.1 H MCV 87 MCH 28.2 MCHC 32.5 RDW 13.2 Plt Count 266 MPV 9.9 Immature Gran % 0.3 Neutrophils % 84.4 Lymphocytes % 12.9 Monocytes % 1.8 Eosinophils % 0.1 Basophils % 0.5 Nucleated RBC % 0.0 Absolute Neutrophils 7.97 H Absolute Lymphocytes 1.22 Absolute Monocytes 0.17 Absolute Eosinophils 0.01 Absolute Basophils 0.05 Sodium 141 143 Potassium 3.6 3.2 L Chloride 103 104 Carbon Dioxide 28.0 29.6 Anion Gap 10.0 9.4 BUN 21 H 25 H Creatinine 0.8 0.9 Est GFR (CKD-EPI 2020) 77.75 67.50 Glucose 95 91 Calcium 9.8 9.7 Magnesium 2.0 2.1 Time Spent with Patient Time Spent with Patient: >50 minutes Time was spent: preparing to see the patient(eg.review tests), obtaining and/or reviewing separately otained hiistory, ordering medications,tests, procedures, referring, communicating with other health lawn care professional, indepentently interpreting results, counseling the patient and care coordination
[2024-07-28] MEDS: Potassium Chloride 20 MEQ TABCR PO (10:40)
[2024-07-28] MEDS: POTASSIUM CHLORIDE 20 MEQ/100 ML BAG 50 MEQ IV_INF ×2 (10:40→13:01)
[2024-07-28] MEDS: Lidocaine Patch Removal 1 EACH TP (11:08)
--- NOTE | 2024-07-28 11:56 | IN_ITS ---
PT Notes Visit Reasons: Lumbago with Radiculopathy Inpatient Physical Therapy Evaluation Date:07/28/2024 Referring Doctor: Marlene Nunn PT Orders: PT CONSULT: PT Evaluation and treat Precautions: Standard, IV access RUE Patient Profile/Admitting Diagnosis: Pt is 74 yo female presented to the ED with severe low back pain radiating to LLE. Lumbar CT Scan: Severe facet degenerative changes causes mild L5-4 5 spondylo all listhesis. Combination of degenerative changes causes severe bilateral neural foraminal narrowing as well as severe central canal stenosis. There is severe bilateral neural foraminal narrowing at L5-S1 secondary to combination of facet degenerative changes and endplate osteophytes. Pt had Consult with [facility] with recommendation for MRI on 07/27. MRI FINDINGS: Conus medullaris is at normal level. There is no evidence of conus mass nor subjacent clumping of intrathecal nerve roots to suggest arachnoiditis. The distal thecal sac appears unremarkable.There is no evidence of Tarlov intrasacral cysts nor other significant findings within the sacral canal Bones:There is mild wedging of T11 vertebral body which does exhibit some mild edema on STIR images, as does the T12 vertebral body. Possibly subacute minimal compression fractures. With respect to the individual levels... T10-11: There is a disc herniation at this level which is difficult to evaluate as there are no axial images through this level in the thoracic spine. T11-12: There is advanced disc space narrowing at this level. Schmorl's node invagination noted in the inferior endplate of T11 with some surrounding bone edema. There is annular bulging at this level which is difficult to evaluate accurately as there are no axial images at this thoracic level. Judging from the sagittal images this does cause some mild effacement of the anterior thecal sac at this level but no tight spinal canal stenosis. T12-L1: This level exhibits moderate-advanced disc space narrowing and broad annular bulging. There is no prominent disc herniation or central spinal canal stenosis. There is moderate bilateral foraminal stenosis at this level. Facet joints unremarkable. L1-2: Mild decreased disc height. There is asymmetric annular bulging lateral right at the level of the exiting right neural foramen resulting in moderate right-sided foraminal stenosis at this level. There is no foraminal stenosis on the opposite-left side. There is no significant central canal stenosis. There are moderate degenerative changes in the right facet joint and mild degenerative changes in the left facet joint. L2-3: Normal disc height. No disc herniation nor central canal stenosis.No foraminal stenosis.No facet arthropathy. L3-4: Normal disc height. There is a small annular tear anteriorly in the disc which is not clinically significant with respect to the spinal column. Posteriorly there is no disc herniation or central canal stenosis and there is no foraminal stenosis. There is mild facet arthropathy. L4-5: There is relatively preserved disc height but there is 1 cm anterolisthesis of L4 upon L5 due to danced facet arthropathy. This results in typical pseudo herniation of the annulus. There is no distinct focal disc herniation. There is severe central spinal canal stenosis due to the listhesis. In addition there is moderate left-sided foraminal stenosis and mild right- sided foraminal stenosis. There is a mild compression of the exiting left nerve root between the overlying pedicle and bulging annulus in the exiting left neural foramen. There is advanced facet arthropathy. Also some ligamentum flavum hypertrophy. L5-S1: This level exhibits advanced disc space height loss a chronic-type nature. In addition, there is annular bulging with a superimposed central subligamentous disc herniation which extends posteriorly 5 mm and is approxim ately 10 mm wide, this causing impression upon the anterior aspect of the thecal sac at this level. The annular bulging extends into the floor both exiting neural foramina. There does not appear to be significant foraminal stenosis on the right side. There is mild foraminal stenosis on the left side. There is moderate degenerative changes in the facet joints, slightly more so on the left side. Soft tissues: paraspinal soft tissues appear unremarkable. IMPRESSION: 1. Multilevel significant findings as described individually above. 2. There is severe central spinal canal stenosis at L4-5, this related to 1 cm anterolisthesis of L4 upon L5 which itself is due to facet arthropathy. In addition, there is moderate left-sided foraminal stenosis at this level and mild right-sided foraminal stenosis. 3. In addition to advanced disc space narrowing at L5-S1 and broad annular bulging, there is also superimposed central subligamentous disc herniation which significantly indents the anterior thecal sac at this level, as described above. Other findings as above, including findings in the lower thoracic spine which would require additional axial sequences in the thoracic spine to be included for adequate assessment. There is also some mild signal abnormality in the T11 and T12 vertebral bodies with mild anterior wedging of T11 and Schmorl's node invagination with surrounding bone edema in the inferior endplate of T11 indicating that this is subacute. PMHX: Anterolisthesis of lumbar spine (Acute) Low back pain radiating to left lower extremity (Acute) Hypokalemia due to excessive renal loss of potassium (Acute) Obesity (BMI 30.0-34.9) (Chronic) Tubular adenoma (Acute) Colon polyp (Acute) Elevated glucose level (Acute) Colon cancer screening (Acute) Constipation (Acute) Essential hypertension (Acute 03/24/13) Hyperlipidemia (Acute 04/09/12) 10 year risk 17.7% Tobacco use disorder (Acute) Surgical History History of colonoscopy with polypectomy (~02/10/21) S/P appendectomy S/P cholecystectomy Dilation and curettage DUB Social History/Home Situation: Patient resides with and 1 family home with ramp to enter. Patient independent ambulation ADLs meal prep. driving, medication mgmt Equipment Owned/DME: none; ramp to enter; Subjective: pt reports she has been having so much pain and has not been able to get out of the bed . She states if she moves very slowly she may be able to get out of the bed and try sitting in a chair as long as she can lean to the right to avoid leaning on the left buttock. Objective: [] General Observation: female lying on her right side in position crying. Pt received pain meds 1/2 hour prior to session. Mental Status: A+Ox4, cooperative , able to follow instructions. Pt agreeable to participate in assessment Pain: rest 4/10, 10/10 when leans on left Vital Signs: monitored by Nursing ROM: Right Upper Extremity: WNL Left Upper Extremity: WNL Right Lower Extremity: WNL Left Lower Extremity: hip flexion to 90 degrees, abduction 15 degrees, knee and ankle ANL Strength: Right Upper Extremity: 5/5 Left Upper Extremity: 5/5 Right Lower Extremity: Hip flexion: >/=to 3 /5; hip abduction: >/=to 3 /5; hip extension: >/=to 3 /5; knee extension: >/=to 3 /5; knee flexion: >/=to 3/5 ankle DF: >/=to 3 /5 ; ankle PF: >/=to 3 /5 Left Lower Extremity: Hip flexion: 2+/5; hip abduction: 2- /5; hip extension: 2- /5; knee extension: 3 /5; knee flexion: 2+ /5 ankle DF: 3 /5 ; ankle PF: 3 /5 Sensation: intact No loss of sensation over dermatomes Bed Mobility/Transfers: roll to right with rail independent roll to left unable supine to sit toward the right: mod A at trunk with increased time to allow her to move slowly through transition sit to stand at FWW: min A with pt performing TTWB through LLE stand pivot on right foot: pt. able to swivel pivot with FWW toward the right with min A for FWW mgmt. Gait: unable at this time Balance: [] Static Sitting: Fair Dynamic Sitting: Poor Static Standing: fair- Dynamic Standing: Poor Special Tests: Mobility Limitations Standardized Measure [facility] AM-PAC 6 clicks Basic Mobility Inpatient Short Form: Raw Score: 10 CMS Score: 76.75% Informed Consent/Education: Patient instructed in purpose of PT consult and plan of care. Assessment: Patient is a 74year old female referred to physical therapy services with the diagnosis of low back pain. Patient presents with clinical signs and symptoms consistent with lumbar radiculopathy, as demonstrated by the following impairment level findings: 1. Decrease strength left lower extremity major muscle groups 2. Impaired sitting standing balance 3. Increased pain left side low back radiating to left lower extremity 4. Impaired activity tolerance 5. Decreased tolerance to weightbearing through left lower extremity Impairments are contributing to the following functional limitations: 1. AMPAC score. 2. Decline in bed mobility skills 3. Declining transfer skills 4. Difficulty ambulating without assistive device and physical assistance 5. Increased risk for falls 6. Increased time to complete ADLs/mobility tasks Patient finds some relief of pain with flexion bias lumbar stabilization techniques including [id number], posterior pelvic tilt. Extension increases pain therefore we will continue with flexion bias exercises Patient is assessed as a Moderate [id number] complexity based on the following: History: 74-year-old female with past medical history as stated above Examination: Demonstrates impairments in strength balance and mobility level with underlying impairments and functional limitations as stated above as well as a deficit score of 76.75% utilizing the [facility] AM-PAC mobility inpatient Short form Presentation: Evolving Decision Making: Moderate Goals: Goals X1 week 1. supine to sit via log roll supervision 2. Transfers with FWW supervision 3. Ambulate with FWW supervised 150 feet 4. Independent with home exercise program for lumbar stabilization Plan of Care/Treatment Plan: 1-2x/day, 7 days/week x 1 week. Plan of care has been reviewed with the [employer] EVALUATOR providing the service under Physical Therapy direction. Initiate Physical Therapy intervention for strengthening, bed mobility, transfers, gait, stairs, balance training, use of assistive device. DISCHARGE RECOMMENDATIONS: [] [] Home with no services [] [] Home with services [specify] [] Home with outpatient PT [] X SNF for continued rehabilitation VS HHPT then transition to outpatient PT [] [employer] [facility] [] [] SNF versus LTC based on ability to participate and progress [] TREATMENT CODE/TIME: 62921, 91785/ [id number]
[2024-07-28] MEDS: Methocarbamol 500 MG TAB 1000 MG PO ×2 (13:01→16:52)
--- NOTE | 2024-07-28 14:33 | PHA.REVIEW2 ---
Pharmacy Admission Review Admission Clinical Review Admission Pharmacy Review: Anterolisthesis of lumbar spine (Acute) Low back pain radiating to left lower extremity (Acute) Hypokalemia due to excessive renal loss of potassium (Acute) Essential hypertension (Acute 03/24/13) Hyperlipidemia (Acute 04/09/12) Tobacco use disorder (Acute) hexachlorophene (Hexachlorophene) Allergy (Intermediate, Verified 07/26/24 09:08) RASH Resuscitation Status Full Code Height 5 ft 3 in Weight 75.296 kg Pharmacy Admission Review Renal Dosing Renal Dosing: BUN 25 mg/dL (7-18) H 07/28/24 06:20 Creatinine 0.9 mg/dL (0.55-1.02) 07/28/24 06:20 Medications needing adjustments: Reviewed (CrCl 48.69 mL/min, BUN increased from 21) List of meds needing interventions: Current medications are okay Anticoagulation Anticoagulation: Hgb 15.3 g/dL (11.2-15.7) 07/27/24 12:10 Hct 47.1 % (36.0-46.0) H 07/27/24 12:10 Plt Count 266 10^3/uL (130-400) 07/27/24 12:10 Creatinine 0.9 mg/dL (0.55-1.02) 07/28/24 06:20 DVT Prophylaxis: Reviewed (SCDs/TEDs) Opiate Usage Evaluate Pain Scale/Pains Meds: Reviewed (oxycodone 5mg q4h PRN - 10g / 24hrs, pain 6 at 1255) Scheduled Bowel Reg ordered if on Opiates?: No (PRN docusate/Miralax) Relevant Labs Relevant Labs: Sodium 143 mmol/L (136-145) 07/28/24 06:20 Potassium 3.2 mmol/L (3.5-5.1) L 07/28/24 06:20 Chloride 104 mmol/L (98-107) 07/28/24 06:20 Magnesium 2.1 mg/dL (1.8-2.4) 07/28/24 06:20 Electrolytes, C-Reactive P, ESR: Reviewed (K 3.2 - was given IV infusion today) Cardiac Review Cardiac Review: BP, HR, EF%: Reviewed (BP 150/63, HR 59) List meds needing interventions: has order for HCTZ 25mg daily and lisinopril 20mg daily QTc Review QTc: Reviewed (No EKG on file) IV to PO Switch IV Medications: Reviewed (ketorolac) Home Meds Home Med List reviewed: Intervened Relevent Home Meds Not ordered & why?: elderberry, omega 3 fish oil, potassium and triamcinolone Spoke with provider regarding potassium and triamcinolone. Per provider they are looking into it and will add if needed. Current Meds Current Medication Order Review: Reviewed
[2024-07-28 15:19] VITALS: BP 150/64; PULSE 69; RESP 14; TEMP 37.4; O2SAT 94
[2024-07-28] MEDS: Cyclobenzaprine 10 MG TAB PO (20:55)
[2024-07-28] MEDS: Multivitamin TAB 1 TAB PO (20:55)
[2024-07-28] MEDS: Lidocaine 5% Patch 1 PATCH TP (20:56)
[2024-07-28] MEDS: Pravastatin 20 MG TAB PO (20:56)
[2024-07-28] MEDS: Lisinopril 20 MG TAB PO (20:56)
[2024-07-28] MEDS: Aspirin E.C. 81 MG TABEC PO (20:56)
[2024-07-28] MEDS: hydroCHLOROthiazide 25 MG TAB PO (20:56)
[2024-07-29] VITALS: BP 144/61; PULSE 63; RESP 15; TEMP 36; O2SAT 96
[2024-07-29] MEDS: Normal Saline Flush 10 ML SYR IVP ×3 (00:35→08:52)
[2024-07-29] MEDS: Ketorolac 15 MG/ML VIAL IVP ×3 (00:35→11:12)
[2024-07-29] MEDS: oxyCODONE 5 MG TAB PO ×2 (03:27→08:48)
[2024-07-29 06:39] LABS: Abs Immature Grans 0.04 10^3/uL (0.0-0.06); Absolute Basophil Count 0.03 10^3/uL (0.0-0.2); Absolute Eosinophil Count 0.02 10^3/uL (0.0-0.7); Absolute Monocyte Count 0.81 10^3/uL (0.1-0.8); Basophils % 0.3 %; Eosinophils % 0.2 %; HGB 14.3 g/dL (11.2-15.7); Immature Grans % 0.3 %; Lymphocytes % 31.1 %; MCH 28.1 pg (27.0-33.0); MCHC 32.5 % (32.0-36.0); MCV 86 fL (80-95); MPV 10.3 fL (8.0-11.0); Neutrophils % 61.1 %; Platelet Count 249 10^3/uL (130-400); RBC 5.09 10^6/uL (3.93-5.22); RDW-SD 40.5 fL; WBC 11.56 10^3/uL (4.4-10.8)
[2024-07-29 06:41] LABS: Absolute Neutrophil Count 7.06 10^3/uL (1.2-6.7)
[2024-07-29 06:50] LABS: Anion Gap 5.4 mmol/L (3-11); BUN 24 mg/dL (7-18); CO2 28.6 mmol/L (21.0-32.0); CREATININE 0.8 mg/dL (0.55-1.02); Calcium 9.5 mg/dL (8.5-10.1); Chloride 108 mmol/L (98-107); Estimated GFR 77.75 (mL/min/1.73m2); Glucose 86 mg/dL (74-106); Magnesium 2.1 mg/dL (1.8-2.4); Potassium 3.6 mmol/L (3.5-5.1); Sodium 142 mmol/L (136-145)
[2024-07-29 07:53] VITALS: BP 157/80; PULSE 67; RESP 18; TEMP 37.2; O2SAT 96
[2024-07-29] MEDS: Acetaminophen 325 MG TAB 650 MG PO ×2 (08:49→11:12)
[2024-07-29] MEDS: predniSONE 20 MG TAB 80 MG PO (08:49)
[2024-07-29] MEDS: Cyclobenzaprine 10 MG TAB PO ×2 (08:49→13:23)
[2024-07-29] MEDS: Pantoprazole 40 MG TABCR PO (08:49)
[2024-07-29] MEDS: Lidocaine Patch Removal 1 EACH TP (08:51)
--- NOTE | 2024-07-29 10:28 | PGE_ITS ---
Date of Service Date of service: 07/29/24 Time of Service: 10:28 Assessment and Plan Assessment and plan (1) Low back pain radiating to left lower extremity: Status: Acute Assessment and plan: referred to observation, and MRI as per [facility] neurosurgery Failed pain control in ED, will schedule ketorolac in addition to acetaminophen. Ongoing as needed oxycodone Continue oral steroids- increased dosage continue PPI Continue neurovascular monitoring CT scan:Moderate to severe bony canal stenosis at L4-L5 due to facet joint arthropathy and anterolisthesis. discussed with neurosurgery at [facility]: consult with neurosurgery at [facility] to follow-up status post MRI MRI completed report: IMPRESSION: 1. Multilevel significant findings as described individually see original report. 2. There is severe central spinal canal stenosis at L4-5, this related to 1 cm anterolisthesis of L4 upon L5 which itself is due to facet arthropathy. In addition, there is moderate left-sided foraminal stenosis at this level and mild right-sided foraminal stenosis. 3. In addition to advanced disc space narrowing at L5-S1 and broad annular bulging, there is also superimposed central subligamentous disc herniation which significantly indents the anterior thecal sac at this level, as described above. Other findings as above, including findings in the lower thoracic spine which would require additional axial sequences in the thoracic spine to be included for adequate assessment. There is also some mild signal abnormality in the T11 and T12 vertebral bodies with mild anterior wedging of T11 and Schmorl's node invagination with surrounding bone edema in the inferior endplate of T11 indicating that this is subacute. Spoke to Dr Abreu from [facility] vascular :No recommendation for Sx w/o true weakness and negative saddle anesthesia signs , with medrol pack and NSAIDs, will take 6-8 weeks to resolve . If not then reconsult - F/u with Spine in 2 months recommendation for tizanidine or cyclobenzaprine VS methocarbamol (2) Essential hypertension: Status: Acute Assessment and plan: On home regimen with lisinopril/hctz monitor routinely and adjust as needed BMP in the morning (3) Hyperlipidemia: Status: Acute Assessment and plan: On home dose statin (4) Hypokalemia due to excessive renal loss of potassium: Status: Acute Assessment and plan: On home dose of potassium (5) Tobacco use disorder: Status: Acute Assessment and plan: NRT PRN discussed with Dr Cherry Exam Narrative Exam Narrative: Alert oriented x 4, no focal deficit, unlabored breathing clear lungs, S1-S2, no murmur, abdomen is nondistended soft nontender, moves all 4 extremities- LLE weakness d/t to pain no true weakness Objective Last Vital Signs Temp 37.2 C 07/29/24 07:53 Pulse 67 07/29/24 07:53 Resp 18 07/29/24 07:53 BP 157/80 H 07/29/24 07:53 Pulse Ox 96 07/29/24 07:53 Laboratory Results - last 24 hr 07/29/24 06:15 WBC 11.56 H RBC 5.09 Hgb 14.3 Hct 44.0 MCV 86 MCH 28.1 MCHC 32.5 RDW 13.0 Plt Count 249 MPV 10.3 Immature Gran % 0.3 Neutrophils % 61.1 Lymphocytes % 31.1 Monocytes % 7.0 Eosinophils % 0.2 Basophils % 0.3 Nucleated RBC % 0.0 Absolute Neutrophils 7.06 H Absolute Lymphocytes 3.60 H Absolute Monocytes 0.81 H Absolute Eosinophils 0.02 Absolute Basophils 0.03 Sodium 142 Potassium 3.6 Chloride 108 H Carbon Dioxide 28.6 Anion Gap 5.4 BUN 24 H Creatinine 0.8 Est GFR (CKD-EPI 2020) 77.75 Glucose 86 Calcium 9.5 Magnesium 2.1
--- NOTE | 2024-07-29 10:42 | W.PM.DS.N ---
Date of service: 07/29/24 Time of Service: 10:42 DS: Diagnosis Discharge Diagnosis (1) Low back pain radiating to left lower extremity: Status: Acute (2) Essential hypertension: Status: Acute (3) Hyperlipidemia: Status: Acute (4) Hypokalemia due to excessive renal loss of potassium: Status: Acute (5) Tobacco use disorder: Status: Acute Discharge Plan Disposition Patient Disposition: Home W/Home Health Services Condition: Improving Discharge Details Reason For Visit: Lumbago with Radiculopathy Admit Date/Time: 07/26/24 12:48 Admit Provider: Hiram Cherry Attending Provider: Hiram Cherry Primary Care Provider: Jacobo Leach Hospital Course Hospital Course: 73-year-old female patient with past medical history of tobacco use disorder, hypertension, sciatica, was seen at urgent care on 07/25/2024 and started on methylprednisolone and tolerated surgery drugs Tylenol and lidocaine patch for intermittent back pain due to prior fall and back injury was brought in by family on 07/26/2024 for evaluation of recurrent left lower back pain radiating down her left leg. Workup in the ED was significant for CT scan findings of stroke TIA discharge just like as department and then if we need to moderate to severe bony canal stenosis at L4-L5 due to facet joint arthropathy and anterolisthesis. Dr. Flowers was consulted with recommendations for admission for observation, steroids, and pain control, MRI in the morning as well as neurovascular checks. The patient was admitted to the medical surgical by the hospitalist team. During the stay pain was controlled by multimodal pain management with improvement in mobility and ambulation with physical therapy and walker. MRI was completed with the following findings: 1.Multilevel significant findings as described individually see original report. 2. There is severe central spinal canal stenosis at L4-5, this related to 1 cm anterolisthesis of L4 upon L5 which itself is due to facet arthropathy. In addition, there is moderate left-sided foraminal stenosis at this level and mild right-sided foraminal stenosis. 3. In addition to advanced disc space narrowing at L5-S1 and broad annular bulging, there is also superimposed central subligamentous disc herniation which significantly indents the anterior thecal sac at this level, as described above. -Other findings as above, including findings in the lower thoracic spine which would require additional axial sequences in the thoracic spine to be included for adequate assessment. There is also some mild signal abnormality in the T11 and T12 vertebral bodies with mild anterior wedging of T11 and Schmorl's node invagination with surrounding bone edema in the inferior endplate of T11 indicating that this is subacute. S/P discussion with Dr Abreu from [facility] [place] neurovascular- spine who reviewed the MRI:No recommendation for Sx w/o true weakness and negative saddle anesthesia signs, recommendation for medrol pack and NSAIDs, with prognosis of 6 to 8-week for resolution and follow-up with [facility] neurovascular spine in 2 months. Reevaluation if no resolution. Patient will be discharge home with home health physical therapy for skill PT with transition to outpatient later and follow-up with PCP within 7 days of discharge. Discussed with Dr Cherry Home Meds and New Rx's Prescriptions: New cyclobenzaprine 10 mg Tablet 10 mg PO TID Qty: 90 0RF docusate sodium [Colace] 100 mg Capsule 100 mg PO DAILY Qty: 30 0RF oxycodone 5 mg Tablet 5 mg PO Q12H PRN PRNQty: 10 0RF pantoprazole 40 mg Tablet,Delayed Release (Dr/Ec) 40 mg PO DAILY@0730 Qty: 30 0RF prednisone 20 mg Tablet See Rx Instructions .ROUTE .COMPLEX Qty: 35 0RF Rx Instructions: take 80 mg for 5 days then take 40 mg for 5 days then take 20 mg for 5 days then stop ketorolac 10 mg tablet 10 mg PO Q8H Qty: 9 0RF Rx Instructions: Take for 3 days as scheduled then use PRN ibuprofen acetaminophen [Acetaminophen Pain Relief] 500 mg tablet 1,000 mg PO Q8H Qty: 30 0RF Rx Instructions: Take for 5 days as scheduled then PRN Continued elderberry fruit 350 mg capsule 350 mg PO HS omega-3 fatty acids 500 mg capsule 1,000 mg PO DAILY triamcinolone acetonide 0.025 % cream 1 applic Topical BID Qty: 80 0RF lidocaine 5 % adhesive patch,medicated 1 patch topical DAILY Qty: 15 0RF Rx Instructions: leave on most painful area for up to 12 hrs multivitamin 1 EACH tablet 1 ea PO DAILY aspirin [Aspir-81] 81 MG tablet,delayed release (DR/EC) 81 mg PO DAILY potassium chloride 10 mEq tablet extended release See Rx Instructions .ROUTE .COMPLEX Qty: 90 1RF Dose Instruction: TAKE 2 TABLETS BY MOUTH ONCE DAILY FOR 3 DAYS, THEN TAKE 1 ONCE DAILY Rx Instructions: TAKE 2 TABLETS BY MOUTH ONCE DAILY FOR 3 DAYS, THEN TAKE 1 ONCE DAILY pravastatin 20 mg tablet See Rx Instructions .ROUTE .COMPLEX Qty: 90 1RF Dose Instruction: TAKE ONE TABLET BY MOUTH EVERY DAY Rx Instructions: TAKE ONE TABLET BY MOUTH EVERY DAY lisinopril-hydrochlorothiazide 20-25 mg tablet See Rx Instructions .ROUTE .COMPLEX Qty: 90 1RF Dose Instruction: TAKE ONE TABLET BY MOUTH EVERY DAY Rx Instructions: TAKE ONE TABLET BY MOUTH EVERY DAY Discharge Instructions Stand Alone Forms: Nursing Discharge Form Referrals: ORTHOPAEDICS,[facility] [place] [OTHER] - (Spine consult 2 months - consulted on by Dr. Abreu ----A referral has been sent for you. The office should call with an appointment, please feel free to call them if you dont hear back.) Jacobo Leach NP [Primary Care Provider] - 08/05/24 1:40 pm () Activity:: Activity as Tolerated Equipment/Supplies:: Walker Diet:: heart healthy Discharge Orders Discharge Orders: Discharge Order (Routine); Ordered 07/29/24 Ordered By: Cony Segovia Discharge Data Discharge Date/Time-TO BE ENTERED AT DEPARTURE: 07/29/24 16:41 DS: Summary Time Spent with Patient providing and/or coordinating discharge services: Greater than 30 minutes Status at Discharge Functional status at discharge: uses cane/walker Overall status at discharge: patient is progressing back to baseline Mental Status: mental status grossly normal Speech and Movement: speech and movement normal Mood: congruent mood Affect: normal affect Quality:SDOH Health Related Social Needs: Health related social needs housing instability, housed, with risk of homelessness (Z59.811) Health related social needs details Sarah declines that she has housing insecurity Exam Narrative Exam Narrative: Alert oriented x 4, no focal deficit, clear lungs, S1-S2, no murmur, abdomen is nondistended soft nontender, moves all 4 extremities- LLE weakness d/t to pain no true weakness, pain is less, more localized and on palpation of lower back Psych Mental Status: mental status grossly normal Speech and Movement: speech and movement normal Mood: congruent mood Affect: normal affect DS: Data Vitals/I&O Vitals and I&O: Vital Signs Temperature 37.2 C 07/29/24 07:53 Temperature Source Temporal Artery Scan 07/29/24 07:53 Pulse 67 07/29/24 07:53 Pulse Rhythm Regular 07/26/24 14:21 Respiratory Rate 18 07/29/24 07:53 Respiratory Effort Normal, Non-Labored 07/26/24 14:21 Respiratory Depth Normal 07/26/24 14:21 Respiratory Pattern Normal 07/26/24 14:21 Blood Pressure 157/80 H 07/29/24 07:53 Blood Pressure Mean 89 07/26/24 13:31 Blood Pressure Position Sitting 07/26/24 10:21 Pulse Oximetry 96 07/29/24 07:53 Oxygen Delivery Method Room Air 07/29/24 07:53 Oxygen Flow Rate 0 07/29/24 07:53 Pain Level 10 07/29/24 08:49 Comment RN notified 07/28/24 15:19 Intake & Output 07/28/24 07/28/24 07/29/24 11:59 23:59 11:59 Intake Total 20 / 420 400 / 420 20 / 20 Output Total 1400 / 2049 650 / 2050 Balance -1380 / -1630 -250 / -1630 20 / 20 Intake: IV 20 / 220 200 / 220 20 / 20 Oral 200 / 200 Output: Urine 1400 / 2049 650 / 0 Other: Urine Color Yellow Light Leydi Yellow Urine Appearance Clear Clear Urine Odor Normal Strong Normal Data Completed and Pending Labs on day of discharge: Labs from last 24 hours 07/29/24 06:15 WBC 11.56 H RBC 5.09 Hgb 14.3 Hct 44.0 MCV 86 MCH 28.1 MCHC 32.5 RDW 13.0 Plt Count 249 MPV 10.3 Immature Gran % 0.3 Neutrophils % 61.1 Lymphocytes % 31.1 Monocytes % 7.0 Eosinophils % 0.2 Basophils % 0.3 Nucleated RBC % 0.0 Absolute Neutrophils 7.06 H Absolute Lymphocytes 3.60 H Absolute Monocytes 0.81 H Absolute Eosinophils 0.02 Absolute Basophils 0.03 Sodium 142 Potassium 3.6 Chloride 108 H Carbon Dioxide 28.6 Anion Gap 5.4 BUN 24 H Creatinine 0.8 Est GFR (CKD-EPI 2020) 77.75 Glucose 86 Calcium 9.5 Magnesium 2.1 PFSH All Active Problems (Updated 07/26/24 @ 14:28 by ADONAY Alonso) Anterolisthesis of lumbar spine (Acute) Low back pain radiating to left lower extremity (Acute) Hypokalemia due to excessive renal loss of potassium (Acute) Obesity (BMI 30.0-34.9) (Chronic) Tubular adenoma (Acute) Colon polyp (Acute) Elevated glucose level (Acute) Colon cancer screening (Acute) Constipation (Acute) Essential hypertension (Acute 03/24/13) Hyperlipidemia (Acute 04/09/12) 10 year risk 17.7% Tobacco use disorder (Acute) Surgical History History of colonoscopy with polypectomy (~02/10/21) S/P appendectomy S/P cholecystectomy Dilation and curettage DUB Family History Mother , AGE 83 Diabetes Essential hypertension Heart disease Hyperlipidemia Sister No problems noted. Sister Essential hypertension Sister Diabetes Maternal Grandfather No problems noted. Paternal Grandfather , AGE 86 Stroke Maternal Grandmother , AGE 86 No problems noted. Paternal Grandmother , AGE 99 No problems noted. Father , AGE 91 Essential hypertension Heart disease Stroke Son No problems noted. Son Essential hypertension Daughter No problems noted. Daughter No problems noted. Daughter No problems noted. Social History (Updated 01/01/24 @ 16:16 by Kailee Dunbar) Smoking/Tobacco Use Status: Current every day Tobacco Type: cigarettes Quit status: considering quitting Second Hand Exposure: No Smoking risk assessment performed?: Yes Alcohol Intake: never Drug use: Never Substance use type: does not use Caregiver/Support person: No Household members: significant other Housing: house Communication Needs: None and Corrective Lenses Do you need help understanding health information?: Rarely Pets and animals: Yes (Ponies) Sexually active: No Do you think of yourself as: straight/heterosexual Current gender identity: female What is your relationship status?: living with partner How often do you talk on the phone with friends or family?: once per week How often do you get together with friends or relatives?: once per week How often do you attend restorationism or zoroastrianism services?: 1-3 times per year Do you belong to any clubs or organized social groups?: no Panel score (0-1 are the most socially isolated patients): 1 What type of physical activity do you participate in: walking and other Details: [employer] Ball Ezra Mendezi Duration: < 15 minutes/day Frequency: 1-2 times per week Daisha/Buddhist: Temple Special daisha needs: No Seatbelt use: always Drive intox or ride w/intox motor coach driver: No Do you feel safe at home: Yes Do you feel safe in your relationship?: Yes Time Spent with Patient Time Spent with Patient: 70-84 minutes4 Time was spent: preparing to see the patient(eg.review tests), obtaining and/or reviewing separately otained hiistory, ordering medications,tests, procedures, referring, communicating with other health healthcare economics manager, indepentently interpreting results, counseling the patient and care coordination
--- NOTE | 2024-07-29 12:44 | CMDISCH_ITS ---
Date of service: 07/29/24 Time of Service: 12:44 LACE Index Scoring Tool Questions: Length of Stay (in days): 3 Was the patient admitted via the E.D.?: Yes E.D. Visits: 1 Answers: Total Score: 7 Risk of Readmission: Low Risk Care Management Discharge Plan Reason for Hospitalization: back pain Discharge Plan: Sarah will be discharged home this afternoon with new services of PT and OT. She will be given new prescriptions for he back pain. She was given a walker by PT. She will f/u with her PCP and continue per her plan of care. Sarah's rehabilitation counselor will pick her up this afternoon and transport her home. Patient/Family Education Needs: Review of discharge instructions, activity, limitations and discuss ask me 3. Services Needed at Discharge: Home Health Care Services (new PT/OT) SDOH Health Related Social Needs: Health related social needs housing instability, house d, with risk of homelessness (Z59.811) Health related social needs details: Sarah declines that she has housing insecurity
--- NOTE | 2024-07-29 12:50 | PT.INTREAT ---
PT Notes Visit Reasons: Lumbago with Radiculopathy Inpatient Physical Therapy Treatment Note [facility] Date: 07/29/2024 PRECAUTIONS:Pain , Standard, Fall risk SUBJECTIVE: (am) Pt initially weepy in pain after 25 mins pain meds and repositioning Pt reports she wants to walk. (pm) Pt reports she is going home and her is going to switch sides of the bed with her so she can get out on the right. She looks forward to going home OBJECTIVE: Pt presented in sidelying toward left side in bed with HOB at 38 degrees weeping d/t pain( pt instructed to roll on back with knees bent, Nursing administered pain meds which were effective 25 mins later PT returned for session) ? PAIN: rest 2/10 when sits/leans on Left buttock >8/10 VITALS: ?monitored by Nursing Therapeutic Activities ([id number][]): Direct one-on-one instruction in dynamic activities to improve functional performance. ?? Bedmobility Min A from right side of bed - assist for LE into bed with no report of pain. transfer sit to stand . Pt unable to stand pushing up from surface seated on. d/t pain . Pt however marilynn to press up through FWW with BUE without increase in pain to achieve standing position. ambulation: Facilitated safe and correct performance of level surface ambulation covering a distance of 40 feet x2 using use front wheeled walker with contact-guard assist and wheelchair follow for safety step to pattern with pt tolerating PWB through LLE. . Did not report of any increased pain. Denied headache, chest pain, and lightheadedness throughout activity. Minimal verbal cueing provided for AD management to keep further in front of her body, directional changes, and posture. (am/PM) Exercises: Posterior pelvic tilt with 5 sec hold, single knee to chest. 3 x 20 sec R/L prior to OOB in am/ reviewed in pm ASSESSMENT:? Pt demonstrates significant improvement in ability to participate in standing tasks including ambulation with FWW. Pt noted progression from no pain down LLE to burning sensation throughout LLE. Pt able to tolerate PWB on LLE for ambulation with FWW and during standing tasks for toileting. Pt continues to respond to flexion bias Lumbar stabilization exercises in supine. (pm) Pt fitted for and issued FWW from [facility]. Pt able to tolerate sitting upright with equal weight through buttocks this pm. Pt to be discharged to home Continue with flexion biased lumbar stabilization PLAN: Continue skilled PT per POC until discharge to home TREATMENT CODE/TIME: [id number] 2nd session [id number]/ [id number] DISCHARGE RECOMMENDATION: HH PT then transition to Outpatient PT
[2024-07-29 14:31] VITALS: BP 111/42; PULSE 65; RESP 14; TEMP 36.9; O2SAT 90
--- NOTE | 2024-07-29 15:05 | PDOC.HHF2F_ITS ---
Home Health Referral <Cony SegoviaVICKY - Last Filed: 07/29/24 15:07> Home Health Orders Clinical synopsis of why skilled professionals are needed: 73-year-old female patient with past medical history of tobacco use disorder, hypertension, sciatica, was seen at urgent care on 07/25/2024 and started on middle prednisone and tolerated surgery drugs Tylenol and lidocaine patch for intermittent back pain due to prior fall and back injury was brought in by family on 07/26/2024 for evaluation of recurrent left lower back pain radiating down her left leg. Workup in the ED was significant for CT scan findings of stroke TIA discharge just like as department and then if we need to moderate to severe bony canal stenosis at L4-L5 due to facet joint arthropathy and anterolisthesis. Dr. Flowers was consulted with recommendations for admission for observation, steroids, and pain control, MRI in the morning as well as neurovascular checks. The patient was admitted to the medical surgical by the hospitalist team. During the stay pain was controlled by multimodal pain management with improv ement in mobility and ambulation with physical therapy and walker. MRI was completed with the following findings: 1.Multilevel significant findings as described individually see original report. 2. There is severe central spinal canal stenosis at L4-5, this related to 1 cm anterolisthesis of L4 upon L5 which itself is due to facet arthropathy. In addition, there is moderate left-sided foraminal stenosis at this level and mild right-sided foraminal stenosis. 3. In addition to advanced disc space narrowing at L5-S1 and broad annular bulging, there is also superimposed central subligamentous disc herniation which significantly indents the anterior thecal sac at this level, as described above. -Other findings as above, including findings in the lower thoracic spine which would require additional axial sequences in the thoracic spine to be included for adequate assessment. There is also some mild signal abnormality in the T11 and T12 vertebral bodies with mild anterior wedging of T11 and Schmorl's node invagination with surrounding bone edema in the inferior endplate of T11 indicating that this is subacute. S/P discussion with Dr Abreu from [facility] [place] neurovascular- spine who reviewed the MRI:No recommendation for Sx w/o true weakness and negative saddle anesthesia signs, recommendation for medrol pack and NSAIDs, with prognosis of 6 to 8-week for resolution and follow-up with [facility] [place] neurovascular spine in 2 months. Reevaluation if no resolution. Patient will be discharge home with home health occupational therapy, physical therapy for skill PT with transition to outpatient later and follow-up with PCP within 7 days of discharge. Discussed with Dr Cherry Physical Therapist: Check all that apply Increase strength & endurance for safe mobility at home: Ordered To design/establish home maintenance program: Ordered Fall reduction therapy program for patient with history of frequent falls: Ordered Home safety evaluation and teaching/gait training including stair management (if applicable): Ordered Occupational Therapist: Evaluate and treat for patient unable to perform ADL/IADL/self-care: Ordered Upper extremity strengthening, range and motion: Ordered Encounter Date and Reason: I certify that a FTF encounter for this patient was performed on July 29, 2024 and that such encounter was related to the primary reason the patient requires home health services. The encounter was conducted in the following manner: * By me as the certifying physician, CLINICAL RESEARCH MANAGEMENT ASSOCIATE, PA or * By an inpatient physician, CLINICAL RESEARCH MANAGEMENT ASSOCIATE or PA during an inpatient stay who communicated findings to me, Certification And Authentication I certify that I composed the above information based on my clinical judgment relating to this patient's medical condition and, if applicable, clinical findings communicated to me by the NPP or inpatient physician who performed the FTF encounter. Name of Provider that will be monitoring home health services: Jacobo Hicks <Hiram Cherry - Last Filed: 07/29/24 18:37> Home Health Orders Clinical synopsis of why skilled professionals are needed: 73-year-old female patient with past medical history of tobacco use disorder, hypertension, sciatica, was seen at urgent care on 07/25/2024 and started on methylprednisilone and tolerated surgery drugs Tylenol and lidocaine patch for intermittent back pain due to prior fall and back injury was brought in by elie dietz on 07/26/2024 for evaluation of recurrent left lower back pain radiating down her left leg. Workup in the ED was significant for CT scan findings of stroke TIA discharge just like as department and then if we need to moderate to severe bony canal stenosis at L4-L5 due to facet joint arthropathy and anterolisthesis. Dr. Flowers was consulted with recommendations for admission for observation, steroids, and pain control, MRI in the morning as well as neurovascular checks. The patient was admitted to the medical surgical by the hospitalist team. During the stay pain was controlled by multimodal pain management with improvement in mobility and ambulation with physical therapy and walker. MRI was completed with the following findings: 1.Multilevel significant findings as described individually see original report. 2. There is severe central spinal canal stenosis at L4-5, this related to 1 cm anterolisthesis of L4 upon L5 which itself is due to facet arthropathy. In addition, there is moderate left-sided foraminal stenosis at this level and mild right-sided foraminal stenosis. 3. In addition to advanced disc space narrowing at L5-S1 and broad annular bulging, there is also superimposed central subligamentous disc herniation which significantly indents the anterior thecal sac at this level, as described above. -Other findings as above, including findings in the lower thoracic spine which would require additional axial sequences in the thoracic spine to be included for adequate assessment. There is also some mild signal abnormality in the T11 and T12 vertebral bodies with mild anterior wedging of T11 and Schmorl's node invagination with surrounding bone edema in the inferior endplate of T11 indicating that this is subacute. S/P discussion with Dr Abreu from [facility] [place] neurovascular- spine who reviewed the MRI:No recommendation for Sx w/o true weakness and negative saddle anesthesia signs, recommendation for medrol pack and NSAIDs, with prognosis of 6 to 8-week for resolution and follow-up with [facility] neurovascular spine in 2 months. Reevaluation if no resolution. Patient will be discharge home with home health occupational therapy, physical therapy for skill PT with transition to outpatient later and follow-up with PCP within 7 days of discharge. Discussed with Dr Cherry
== END 2024-07-29 16:41 | disposition home health service (06) ==
LOC: ER 09:09 → MS 14:13
PROVIDERS: Admitting Provider Family Medicine; Emergency Provider Physician Assistant; PCP Nurse Practitioner Family; Responsible Provider Nurse Practitioner Acute Care; Visit Provider Family Medicine
DX: M54.17 Radiculopathy, lumbosacral region (principal); M48.07 Spinal stenosis, lumbosacral region; M43.17 Spondylolisthesis, lumbosacral region; M51.44 Schmorl's nodes, thoracic region; M79.605 Pain in left leg; I10 Essential (primary) hypertension; M51.24 Other intervertebral disc displacement, thoracic region; E87.6 Hypokalemia; Z79.899 Other long term (current) drug therapy; K59.00 Constipation, unspecified; E78.5 Hyperlipidemia, unspecified; F17.210 Nicotine dependence, cigarettes, uncomplicated
CPT/HCPCS: 00123; 36415; 80048; 96374; 96375; 96376; 97162; 97530; 99285; 72131; 72148; 83735; 85025; 99223; 99233; 99239; G0378; J1171; J1885; J2470; J3480; J3490; J7509; J7512

== ENCOUNTER 2025-01-07 01:55 | Outpatient (CLI) | payer MEDICARE, MEDICAID, SELFPAY ==
--- NOTE | 2025-01-07 07:00 | DI.MAMMO_ITS ---
Exam(s) MAMMO SCREENING EXAM: MAMMO SCREENING CLINICAL HISTORY: screening,Z12.39 TECHNIQUE: Mammograms were interpreted according to the usual protocol including computer analysis with CAD system, tomosynthesis and C-view imaging. COMPARISON: 2014 through 2023 FINDINGS: The breasts are composed of scattered fibroglandular densities, Breast Density category B. No suspicious masses or suspicious microcalcifications are seen. No skin thickening or abnormal axillary lymph nodes are seen. There has been no significant change from prior exams. IMPRESSION: BI-RADS Category 1, Negative mammogram Yearly screening mammography is recommended. Breast Density - Category B - There are scattered areas of fibroglandular density. Breast density Category C or D implies that the patient has dense breast tissue. Dense breast tissue can make it harder to find cancer on a mammogram. Dense breast tissue is also associated with an increased risk of breast cancer. This information about the result of the mammogram report was provided to the patient to raise their awareness. Use this report when you speak with the patient about their risks for breast cancer, which includes their family history. At that time, you may recommend additional screening tests (Ultrasound or MRI) as these tests may add significant information. A negative radiographic report should not delay biopsy if a dominant or clinically suspicious mass is present. Up to ten percent of cancers are not identified on mammography. A negative report may reinforce clinical impression. Adenosis and dense breasts may obscure an underlying neoplasm. False positive reports average 6 to 10%. Patient will receive a letter notifying them of these results.
== END 2025-01-07 02:15 ==
LOC: DI 01:55
PROVIDERS: PCP Nurse Practitioner Family; Visit Provider Nurse Practitioner Family
DX: Z12.31 Encounter for screening mammogram for malignant neoplasm of breast (principal); R92.323 Mammographic fibroglandular density, bilateral breasts
CPT/HCPCS: 77063; 77067